=== PATIENT | male | born 1935 | race Hispanic/Latino ===

== ENCOUNTER 2020-08-05 19:29 | Observation (INO) | payer MEDICARE ==
--- NOTE | 2020-08-05 20:35 | Emergency Department Report ---
- General Chief complaint: Weakness Stated complaint: WEAKNESS PUI?: No Time Seen by Provider: 08/05/20 20:19 Source: EMS Mode of arrival: Stretcher Limitations: Altered Mental Status - History of Present Illness Initial comments: Patient is an 84-year-old male that presents emergency room with complaints of right-sided weakness, altered mental status. Patient brought in by EMS. Patient's last known well time was at 5 PM. Per EMS report. Patient was sitting on the couch and began to lean to the right and had right-sided weakness and became confused and lost control of his bladder. Patient since then has right-sided weakness has resolved. Patient is still altered. Patient at this time is alert and oriented x1. MD Complaint: focal weakness -: Sudden Severity: severe - Related Data Allergies Allergy/AdvReac Type Severity Reaction Status Date / Time No Known Allergies Allergy Unverified 08/05/20 21:02 ED Review of Systems ROS: Stated complaint: WEAKNESS Other details as noted in HPI Comment: Unobtainable due to pts medical conditions ED Past Medical Hx - Past Medical History Previous Medical History?: Yes Hx Hypertension: Yes Hx Seizures: Yes Hx Dementia: Yes Additional medical history: alzheimers. Brain tumor removed in 1989 - Surgical History Past Surgical History?: Yes Additional Surgical History: INTERPRETER shunt placement - Social History Smoking Status: Unknown if ever smoked ED Physical Exam - General Limitations: Altered Mental Status General appearance: alert, in no apparent distress - Head Head exam: Present: atraumatic, normocephalic - Eye Eye exam: Present: normal appearance, PERRL Pupils: Present: normal accommodation - ENT ENT exam: Present: mucous membranes dry - Neck Neck exam: Present: normal inspection - Respiratory Respiratory exam: Present: normal lung sounds bilaterally. Absent: respiratory distress, wheezes - Cardiovascular Cardiovascular Exam: Present: regular rate, normal rhythm. Absent: systolic murmur, diastolic murmur, rubs, gallop - GI/Abdominal GI/Abdominal exam: Present: soft, normal bowel sounds. Absent: distended, tenderness, guarding - Rectal Rectal exam: Present: deferred - Extremities Exam Extremities exam: Present: normal inspection - Back Exam Back exam: Present: normal inspection - Neurological Exam Neurological exam: Present: alert, altered - Psychiatric Psychiatric exam: Present: normal affect, normal mood - Skin Skin exam: Present: warm, dry, intact, normal color. Absent: rash - Assessment Assessment Interval: Baseline - Level of Consciousness 1a. Level of Consciousness: alert/keenly responsive - LOC Questions 1b. LOC Questions: answers 1 question correctly - LOC Command 1c. LOC Commands: performs tasks correctly - Best Gaze 2. Best Gaze: normal - Visual 3. Visual: no visual loss - Facial Palsy 4. Facial Palsy: normal symmetrical movement - Motor Arm 5a. Motor Arm Left: no drift 5b. Motor Arm Right: no drift - Motor Leg 6a. Motor Leg Left: no drift 6b. Motor Leg Right: no drift - Limb Ataxia 7. Limb Ataxia: absent - Sensory 8. Sensory: normal - Best Language 9. Best Language: no aphasia - Dysarthria 10. Dysarthria: normal - Extinction and Inattention 11. Extinction/Inattention: no abnormality - Scoring Total Score: 1 Stroke Severity: Minor Stroke ED Course Vital Signs 08/05/20 08/05/20 08/05/20 19:47 19:48 20:01 Temperature 98.9 F Pulse Rate 73 70 65 Respiratory 25 H 25 H 27 H Rate Blood Pressure 170/77 Blood Pressure 165/80 [left arm] O2 Sat by Pulse 95 93 91 Oximetry 08/05/20 08/05/20 20:15 20:31 Temperature Pulse Rate 68 Respiratory 17 Rate Blood Pressure 170/77 170/77 Blood Pressure [left arm] O2 Sat by Pulse 97 94 Oximetry - Reevaluation(s) Reevaluation #1: Initial evaluation done. Code stroke initiated due to symptoms and presenting illness. Patient will be taken medially CT. Neurology has been consulted. 08/05/20 20:34 Reevaluation #2: I discussed all results with patient. I discussed plan of care with patient. Patient agrees with plan of care and admission. Patient to be admitted to the hospitalist service. 08/05/20 21:37 - Consultations Consultation #1: I discussed case with neurology. Neurology believes this is a seizure. Neurology recommends admission, MRI, seizure work-up and TIA work-up. 08/05/20 21:07 Consultation #2: Hospitalist consulted for admission. Hospitalist to admit patient. 08/05/20 21:37 ED Medical Decision Making - Lab Data Result diagrams: 08/05/20 20:59 08/05/20 20:59 - EKG Data -: EKG Interpreted by Me EKG shows normal: sinus rhythm, ST-T waves Rate: normal - EKG Data Interpretation: LVH, other ([place] deviation, left bundle branch block, second- degree AV block Mobitz 1) - Radiology Data Radiology results: report reviewed, image reviewed interpreted by me: Chest x-ray: No pneumonia, no pneumothorax, no foreign body, no osseous fi ndings, no acute findings NONENHANCED CT SCAN OF THE HEAD: INDICATION / CLINICAL INFORMATION: 84 years Male; Stroke symptoms. TECHNIQUE: Routine CT head without contrast. All CT scans at this location are performed using CT dose reduction for ALARA by means of automated exposure control. COMPARISON: None. FINDINGS: BRAIN / INTRACRANIAL CONTENTS: No intracerebral hemorrhage or stroke mimics No CT findings to suggest acute/subacute territorial infarction; basal ganglia, insular cortex and [place]-white interfaces normal seventh; no signs of vasculopathy such increased middle cerebral artery attenuation are increased attenuation of the middle cerebral artery branches in the sylvian fissure Extraventricular drainage shunt entering via right frontal dangelo hole; tip of this shunt against septum pellucidum; brain volume loss along the track of the shunt Lateral ventricles and third ventricle dilated; temporal horns are markedly dilated; no crowding of the cortical sulci in the high convexity or prominent sylvian fissure or decreased angulation of the lateral ventricles at he level of the posterior commissure (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 No chronic infarct or focal atrophy. Mild to moderate cortical involution; markedly dilated temporal horns suggest significant volume loss in the medial temporal lobes periventricular low attenuation areas due to chronic small vessel disease CRANIOCERVICAL JUNCTION: No significant abnormality. ORBITS: No significant abnormality of visualized orbits. SINUSES / MASTOIDS: No significant abnormality of the visualized paranasal sinuses or mastoid air cells. ADDITIONAL FINDINGS: None. IMPRESSION: No acute focal parenchymal lesion in the brain XR chest 1V ap INDICATION / CLINICAL INFORMATION: ams. COMPARISON: None available. FINDINGS: SUPPORT DEVICES: None. HEART /PULMONARY VASCULATURE: No significant abnormality. LUNGS / PLEURA: No significant pulmonary or pleural abnormality. No pneumothorax. ADDITIONAL FINDINGS: No significant additional findings. IMPRESSION: 1. No acute findings. - Medical Decision Making Patient is an 84-year-old male that presents emergency room for weakness and loss of urine and altered mental status. Patient is believed to be at his baseline however the patient at 5 PM today had an episode of right-sided weakne ss and loss of bladder control. Patient on exam was alert and oriented x1. Patient had labs done which were essentially unremarkable except for elevated WBC and a UTI. After initial evaluation, a code stroke was initiated. Neurology saw the patient. Neurology recommendations were received. CT scan of the head was negative for acute findings. Chest x-ray was negative for acute findings. Patient's EKG shows a sinus rhythm with a second-degree AV block, Mobitz 1 and a left bundle branch block. Patient given IV antibiotics and fluids while in ER. Patient admitted to the hospital service for further evaluation treatment. - Differential Diagnosis CVA, TIA, AMS, UTI, SZ, dementia, weakness Critical Care Time: Yes Critical care time in (mins) excluding proc time.: 35 Critical care attestation.: If time is entered above; I have spent that time in minutes in the direct care of this critically ill patient, excluding procedure time. Critical Care Time: 35 minutes ED Disposition Clinical Impression: TIA (transient ischemic attack), Weakness, Abnormal EKG Altered mental state Qualifiers: Altered mental status type: unspecified Qualified Code(s): R41.82 - Altered mental status, unspecified UTI (urinary tract infection) Qualifiers: Urinary tract infection type: acute cystitis Hematuria presence: with hematuria Qualified Code(s): N30.01 - Acute cystitis with hematuria Disposition: DC09 OP ADMIT IP TO THIS HOSP Is pt being admited?: Yes Does the pt Need Aspirin: No Condition: Critical Time of Disposition: 21:39
--- NOTE | 2020-08-05 20:44 | Emergency Department Report ---
ED Neuro Deficit HPI - General Chief Complaint: Weakness Stated Complaint: WEAKNESS Time Seen by Provider: 08/05/20 20:19 Source: EMS Mode of arrival: Stretcher Limitations: Altered Mental Status - History of Present Illness Initial Comments: [facility] Date of Service: 08/05/2020 20:33:16 Impression: Transient Ischemic Attack r/o TIA r/o Seizure Comments/Sign-Out: Patient is a 84 years old man who presents to the ED after having sudden onset right side weakness, urinary incontinence. Symptoms are improved now. On exam, patient is disoriented but he has history of dementia and this may be baseline. There are no other motor or speech deficits on exam. NIHSS is 2. Non contrast CTH showed no acute abnormalities. DDx includes TIA vs focal seizure. Recommend admission for further work-up. Metrics: Last Known Well: 08/05/2020 17:00:00 [facility] Notification Time: 08/05/2020 20:32:51 Arrival Time: 08/05/2020 19:29:00 Stamp Time: 08/05/2020 20:33:16 Time First Login Attempt: 08/05/2020 20:35:51 Video Start Time: 08/05/2020 20:35:51 Symptoms: Generalized weakness NIHSS Start Assessment Time: 08/05/2020 20:37:09 Patient is not a candidate for Alteplase/Activase. Patient was not deemed candidate for Alteplase/Activase thrombolytics because of Resolved symptoms (no residual disabling symptoms). Video End Time: 08/05/2020 20:57:27 CT head showed no acute hemorrhage or acute core infarct. Clinical Presentation is not Suggestive of Large Vessel Occlusive Disease ED Physician notified of diagnostic impression and management plan on 08/05/2020 20:56:16 Our recommendations are outlined below. Recommendations: Activate Stroke Protocol Admission/Order Set Stroke/Telemetry Floor Neuro Checks Bedside Swallow Eval DVT Prophylaxis IV Fluids, Normal Saline Head of Bed 30 Degrees Euglycemia and Avoid Hyperthermia (PRN Acetaminophen) Routine Consultation with Inhouse Neurology for Follow up Care Sign Out: Discussed with Emergency Department Provider History of Present Illness: Patient is a 84 year old Male. Patient was brought by EMS for symptoms of Generalized weakness Patient is a 84 years old man who presents to the ED via EMS after he had sudden onset right side weakness and urinary incontinence while at a family dinner. LKW at 5:00 PM. EMS was called and patient was brought to the ED for evaluation. By the time patient arrived to the ED, he was still confused. No other history is available at the time of my evaluation. Patient has history of dementia. Last seen normal was within 4.5 hours. Examination: BP(165/80), Pulse(70), Blood Glucose(157) 1A: Level of Consciousness - Alert; keenly responsive + 0 1B: Ask Month and Age - Could Not Answer Either Question Correctly + 2 1C: Blink Eyes & Squeeze Hands - Performs Both Tasks + 0 2: Test Horizontal Extraocular Movements - Normal + 0 3: Test Visual Gerard - No Visual Loss + 0 4: Test Facial Palsy (Use Grimace if Obtunded) - Normal symmetry + 0 5A: Test Left Arm Motor Drift - No Drift for 10 Seconds + 0 5B: Test Right Arm Motor Drift - No Drift for 10 Seconds + 0 6A: Test Left Leg Motor Drift - No Drift for 5 Seconds + 0 6B: Test Right Leg Motor Drift - No Drift for 5 Seconds + 0 7: Test Limb Ataxia (FNF/Heel-Gallardo) - No Ataxia + 0 8: Test Sensation - Normal; No sensory loss + 0 9: Test Language/Aphasia - Normal; No aphasia + 0 10: Test Dysarthria - Normal + 0 11: Test Extinction/Inattention - No abnormality + 0 NIHSS Score: 2 Patient/Family was informed the Neurology Consult would happen via TeleHealth consult by way of interactive audio and video telecommunications and consented to receiving care in this manner. Due to the immediate potential for life-threatening deterioration due to underlying acute neurologic illness, I spent 35 minutes providing critical care. This time includes time for face to face visit via telemedicine, review of medical records, imaging studies and discussion of findings with providers, the patient and/or family. Dr Aury Macario [facility] Case [id number] Severity: severe ED Review of Systems ROS: Stated complaint: WEAKNESS Other details as noted in HPI ED Past Medical Hx - Past Medical History Additional medical history: alzheimers - Social History Smoking Status: Unknown if ever smoked ED Neuro Physical Exam - General Limitations: Altered Mental Status Suspected Stroke: No ED Course Vital Signs 08/05/20 19:48 Temperature 98.9 F Pulse Rate 70 Respiratory 25 H Rate Blood Pressure 165/80 [left arm] O2 Sat by Pulse 93 Oximetry - Lab Data Lab Results 08/05/20 08/05/20 08/05/20 Range/Units 20:47 Unknown Unknown POC Glucose 157 H (70-105) mg/dL Urine Color [place] (Yellow) Urine Turbidity Cloudy (Clear) Urine pH 5.0 (5.0-7.0) Ur Specific [place] 1.015 (1.003-1.030) Urine Protein 100 mg/dl (Negative) mg/dL Urine Glucose (UA) Neg (Negative) mg/dL Urine Ketones Neg (Negative) mg/dL Urine Blood Mod (Negative) Urine Nitrite Pos (Negative) Urine Bilirubin Neg (Negative) Urine Urobilinogen < 2.0 (<2.0) mg/dL Ur Leukocyte Esterase Lg (Negative) Urine WBC (Auto) > 182.0 H (0.0-6.0) /HPF Urine RBC (Auto) 30.0 (0.0-6.0) /HPF Urine Bacteria (Auto) 2+ (Negative) /HPF Urine WBC Clumps 3+ /HPF Urine Mucus 2+ /HPF Urine Yeast (Budding) 3+ /HPF Urine Opiates Screen Negative Urine Methadone Screen Negative Ur Barbiturates Screen Negative Ur Phencyclidine Scrn Negative Ur Amphetamines Screen Negative U Benzodiazepines Scrn Negative Urine Cocaine Screen Negative U Marijuana (THC) Screen Negative Drugs of Abuse Note Disclamer Critical care attestation.: If time is entered above; I have spent that time in minutes in the direct care of this critically ill patient, excluding procedure time. ED Disposition Clinical Impression: TIA (transient ischemic attack) Disposition: OP ADMIT IP TO THIS HOSP Is pt being admited?: Yes Condition: Stable
[2020-08-05 20:49] LABS: Amphetamine Screen,Urine Negative; Bacteria,Urine 2+ /HPF (Negative); Benzodiazepines Screen,Urine Negative; Bilirubin,Urine NEG (Negative); Blood,Urine MOD (Negative); Cannabinoid Screen,Urine Negative; Cocaine Screen,Urine Negative; Color,Urine Amber (Yellow); Methadone Screen,Urine Negative; Mucus,Urine 2+ /HPF; Opiate Screen,Urine Negative; Urobilinogen,Urine < 2.0 mg/dL (<2.0); WBC,Urine > 182.0 /HPF (0.0-6.0)
[2020-08-05 21:12] LABS: Basophils % (Auto) 0.2 % (0.0-1.8); Hemoglobin 14.4 gm/dl (11.8-15.2); Lymphocytes # (Auto) 1.1 K/mm3 (1.2-5.4); Lymphocytes % (Auto) 8.7 % (13.4-35.0); Mean Corpuscular HGB Conc 34 % (32-34); Mean Corpuscular Volume 90 fl (84-94); Monocytes # (Auto) 0.8 K/mm3 (0.0-0.8); Platelet Count 261 K/mm3 (140-440); Red Blood Count 4.66 M/mm3 (3.65-5.03)
--- NOTE | 2020-08-05 21:18 | XRay Report ---
XR chest 1V ap INDICATION / CLINICAL INFORMATION: ams. COMPARISON: None available. FINDINGS: SUPPORT DEVICES: None. HEART /PULMONARY VASCULATURE: No significant abnormality. LUNGS / PLEURA: No significant pulmonary or pleural abnormality. No pneumothorax. ADDITIONAL FINDINGS: No significant additional findings. IMPRESSION: 1. No acute findings. Signer Name: Manuelito Reed MD Signed: 08/05/2020 9:14 PM Workstation Name: [id number]
--- NOTE | 2020-08-05 21:18 | Cat Scan Report ---
NONENHANCED CT SCAN OF THE HEAD: INDICATION / CLINICAL INFORMATION: 84 years Male; Stroke symptoms. TECHNIQUE: Routine CT head without contrast. All CT scans at this location are performed using CT dos e reduction for ALARA by means of automated exposure control. COMPARISON: None. FINDINGS: BRAIN / INTRACRANIAL CONTENTS: No intracerebral hemorrhage or stroke mimics No CT findings to suggest acute/subacute territorial infarction; basal ganglia, insular cortex and gr ay-white interfaces normal seventh; no signs of vasculopathy such increased middle cerebral artery at tenuation are increased attenuation of the middle cerebral artery branches in the sylvian fissure Extraventricular drainage shunt entering via right frontal dangelo hole; tip of this shunt against septu m pellucidum; brain volume loss along the track of the shunt Lateral ventricles and third ventricle dilated; temporal horns are markedly dilated; no crowding of t he cortical sulci in the high convexity or prominent sylvian fissure or decreased angulation of the l ateral ventricles at he level of the posterior commissure (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 No chronic inf arct or focal atrophy. Mild to moderate cortical involution; markedly dilated temporal horns suggest significant volume loss in the medial temporal lobes periventricular low attenuation areas due to chr onic small vessel disease CRANIOCERVICAL JUNCTION: No significant abnormality. ORBITS: No significant abnormality of visualized orbits. SINUSES / MASTOIDS: No significant abnormality of the visualized paranasal sinuses or mastoid air ashley ls. ADDITIONAL FINDINGS: None. IMPRESSION: No acute focal parenchymal lesion in the brain COMMUNICATION: Time of Communication (ARTISTS' MODEL/CDT): 8:11 PM Licensed Practitioner Receiving Report: ER physician Signer Name: Ivan Wolf MD Signed: 08/05/2020 9:13 PM Workstation Name: [id number]
[2020-08-05 21:22] LABS: INR 1.06 (0.87-1.13)
[2020-08-05 21:23] LABS: Partial Thromboplastin Time 25.8 Sec. (24.2-36.6)
[2020-08-05] MEDS ORDERED: cefTRIAXone/NS 2 GM/100 ML 2 GM/100 ML BAG IV ONE (21:24)
[2020-08-05 21:29] LABS: Calcium 10.1 mg/dL (8.4-10.2)
[2020-08-05] MEDS ORDERED: SODIUM CHLORIDE 0.9% 1000 ML 1,000 ML IV ONE (21:34)
[2020-08-05 21:44] LABS: Creatine Kinase MB 1.8 ng/mL (0.0-4.0)
--- NOTE | 2020-08-05 23:20 | History and Physical Report ---
History of Present Illness Date of examination: 08/05/20 Date of admission: 08/05/20 21:40 Chief complaint: Right sided weakness History of present illness: 84-year-old male with known history of hypertension, brain tumor removal in 1989 and mild dementia was brought in by EMS today with a complaint of right-sided weakness and changes in mental status. Patient was said to be well until about 5 PM this evening and was later found to be leaning to the right while sitting on the couch appearing confused with loss of bladder control. Right-sided weakness has since resolved since arrival in the emergency room. However he was still mildly confused. Patient unable to give any good history and only alert and oriented x1. Most of the history was gotten from the ER staff. He was evaluated by the tele-neurologist and recommendation is to have patient worked up for TIA and possibly seizure disorder. Work-up in the emergency room reveals a UTI. CT scan of the head and chest x-ray were unremarkable. Patient being admitted for TIA versus seizure disorder and a UTI. Past History Past Medical History: hypertension, seizures, other (Dementia) Past Surgical History: Other (SIX SIGMA PROJECT MANAGER shunt placement,Brain tumor removal in 1989) Social history: no significant social history Family history: no significant family history Medications and Allergies Allergies Allergy/AdvReac Type Severity Reaction Status Date / Time No Known Allergies Allergy Unverified 08/05/20 21:02 Home Medications Medication Instructions Recorded Confirmed Last Taken Type Colesevelam [Welchol] 1,875 mg PO BID 08/05/20 08/05/20 Unknown History Melatonin [Melatonin 3MG TAB] 3 mg PO QHS PRN 08/05/20 08/05/20 Unknown History Memantine [Namenda] 5 mg PO BID 08/05/20 08/05/20 Unknown History Omeprazole 40 mg PO QDAY 08/05/20 08/05/20 Unknown History Sertraline [Zoloft] 25 mg PO QDAY 08/05/20 08/05/20 Unknown History donepeziL [Aricept] 10 mg PO QDAY 08/05/20 08/05/20 Unknown History Review of Systems ROS unobtainable: due to mental status Exam - Constitutional Vitals: Temp Pulse Resp BP Pulse Ox 98.9 F 86 15 170/77 94 08/05/20 19:48 08/05/20 22:30 08/05/20 22:30 08/05/20 22:30 08/05/20 22:30 General appearance: Present: no acute distress, well-nourished - EENT Eyes: Present: PERRL, EOM intact. Absent: scleral icterus ENT: hearing intact, clear oral mucosa, dentition normal - Neck Neck: Present: supple, normal ROM - Respiratory Respiratory effort: normal Respiratory: bilateral: CTA - Cardiovascular Rhythm: regular Heart Sounds: Present: S1 & S2. Absent: gallop, systolic murmur, diastolic murmur, rub - Extremities Extremities: no ischemia, pulses intact, pulses symmetrical, No edema, Full ROM Peripheral Pulses: within normal limits - Abdominal General gastrointestinal: Present: soft, non-tender, non-distended, normal bowel sounds. Absent: mass - Integumentary Integumentary: Present: clear, warm, dry. Absent: rash - Musculoskeletal Musculoskeletal: strength equal bilaterally - Psychiatric Psychiatric: cooperative - Neurologic Neurologic: CNII-XII intact, no focal deficits, moves all extremities HEART Score - HEART Score Troponin: Troponin T < 0.010 ng/mL (0.00-0.029) 08/05/20 20:59 Results - Labs CBC & Chem 7: 08/05/20 20:59 08/05/20 20:59 Labs: Abnormal lab results 08/05/20 08/05/20 08/05/20 Range/Units 20:47 20:59 20:59 WBC 12.9 H (4.5-11.0) K/mm3 RDW 13.0 L (13.2-15.2) % Lymph % (Auto) 8.7 L (13.4-35.0) % Lymph # (Auto) 1.1 L (1.2-5.4) K/mm3 Seg Neutrophils % 85.1 H (40.0-70.0) % Seg Neutrophils # 11.0 H (1.8-7.7) K/mm3 Thrombin Time 15.0 L (15.1-19.6) Sec. BUN (9-20) mg/dL Glucose (75-100) mg/dL POC Glucose 157 H (70-105) mg/dL Urine WBC (Auto) (0.0-6.0) /HPF 08/05/20 08/05/20 Range/Units 20:59 Unknown WBC (4.5-11.0) K/mm3 RDW (13.2-15.2) % Lymph % (Auto) (13.4-35.0) % Lymph # (Auto) (1.2-5.4) K/mm3 Seg Neutrophils % (40.0-70.0) % Seg Neutrophils # (1.8-7.7) K/mm3 Thrombin Time (15.1-19.6) Sec. BUN 21 H (9-20) mg/dL Glucose 140 H (75-100) mg/dL POC Glucose (70-105) mg/dL Urine WBC (Auto) > 182.0 H (0.0-6.0) /HPF Assessment and Plan - Patient Problems (1) Altered mental state Current Visit: Yes Status: Acute Qualifiers: Altered mental status type: unspecified Qualified Code(s): R41.82 - Altered mental status, unspecified (2) UTI (urinary tract infection) Current Visit: Yes Status: Acute Qualifiers: Urinary tract infection type: acute cystitis Hematuria presence: with hematuria Qualified Code(s): N30.01 - Acute cystitis with hematuria (3) TIA (transient ischemic attack) Current Visit: Yes Status: Acute (4) Weakness Current Visit: Yes Status: Acute (5) DVT prophylaxis Current Visit: Yes Status: Acute (6) Full code status Current Visit: Yes Status: Acute
[2020-08-06] MEDS ORDERED: ACETAMINOPHEN 325 MG TAB PO PRN (05:03)
[2020-08-06] MEDS: SERTRALINE 25 MG TAB PO SCH (09:22)
[2020-08-06] MEDS: ASPIRIN 325 MG TAB PO SCH (09:23)
[2020-08-06] MEDS: cefTRIAXone/NS 1 GM/50 ML 1 GM/50 ML BAG IV SCH (09:23)
[2020-08-06] MEDS: DONEPEZIL 10 MG TAB PO SCH (09:23)
[2020-08-06] MEDS: PANTOPRAZOLE 40 MG TAB PO SCH (09:23)
--- NOTE | 2020-08-06 09:52 | Progress Note ---
Assessment and Plan Assessment and plan: (1) Altered mental state Current Visit: Yes Status: Acute Qualifiers: Altered mental status type: unspecified Qualified Code(s): R41.82 - Altered mental status, unspecified Improved (2) UTI (urinary tract infection) Current Visit: Yes Status: Acute Qualifiers: Urinary tract infection type: acute cystitis Hematuria presence: with hematuria Qualified Code(s): N30.01 - Acute cystitis with hematuria Patient is on IV ceftriaxone We will follow urine culture (3) TIA (transient ischemic attack) vs seizure disorder Current Visit: Yes Status: Acute -TIA/CVA work-up in progress -Telemetry neurology consult (4) Weakness Current Visit: Yes Status: Acute PT OT consulted (5) DVT prophylaxis Current Visit: Yes Status: Acute (6) Full code status Current Visit: Yes Status: Acute History Interval history: Patient was seen and evaluated this morning Patient is demented but cooperative Hospitalist Physical - Physical exam Narrative exam: Not in cardiopulmonary distress. The patient appeared well nourished and normally developed. Vital signs as documented. Head exam is unremarkable. No scleral icterus . Neck is without jugular venous distension, thyromegaly, or carotid bruits. Lungs are clear to auscultation. Cardiac exam reveals regular rate and Rhythm. Abdominal exam reveals normal bowel sounds, nontender, no organomegaly. Extremities are nonedematous and both femoral and pedal pulses are normal. GLASS DEPOSITION TENDER: Alert and oriented to self. No focal weakness. - Constitutional Vitals: Temp Pulse Resp BP Pulse Ox 97.5 F L 79 18 156/79 91 08/06/20 08:23 08/06/20 08:23 08/06/20 08:23 08/06/20 08:23 08/06/20 08:23 General appearance: Present: no acute distress, well-nourished HEART Score - HEART Score Troponin: Troponin T < 0.010 ng/mL (0.00-0.029) 08/05/20 20:59 Results - Labs CBC & Chem 7: 08/05/20 20:59 08/05/20 20:59 Labs: Laboratory Last Values WBC 12.9 K/mm3 (4.5-11.0) H 08/05/20 20:59 RBC 4.66 M/mm3 (3.65-5.03) 08/05/20 20:59 Hgb 14.4 gm/dl (11.8-15.2) 08/05/20 20:59 Hct 42.0 % (35.5-45.6) 08/05/20 20: MCV 90 fl (84-94) 08/05/20 20:59 MCH 31 pg (28-32) 08/05/20 20:59 MCHC 34 % (32-34) 08/05/20 20: RDW 13.0 % (13.2-15.2) L 08/05/20 20:59 Plt Count 261 K/mm3 (140-440) 08/05/20 20: Lymph % (Auto) 8.7 % (13.4-35.0) L 08/05/20 20: [place] % (Auto) 6.0 % (0.0-7.3) 08/05/20 20: Eos % (Auto) 0.0 % (0.0-4.3) 08/05/20 20: Baso % (Auto) 0.2 % (0.0-1.8) 08/05/20 20: Lymph # (Auto) 1.1 K/mm3 (1.2-5.4) L 08/05/20 20:59 [place] # (Auto) 0.8 K/mm3 (0.0-0.8) 08/05/20 20: Eos # (Auto) 0.0 K/mm3 (0.0-0.4) 08/05/20 20: Baso # (Auto) 0.0 K/mm3 (0.0-0.1) 08/05/20 20: Seg Neutrophils % 85.1 % (40.0-70.0) H 08/05/20 20: Seg Neutrophils # 11.0 K/mm3 (1.8-7.7) H 08/05/20 20:59 PT 13.6 Sec. (12.2-14.9) 08/05/20 20: INR 1.06 (0.87-1.13) 08/05/20 20:59 APTT 25.8 Sec. (24.2-36.6) 08/05/20 20: Thrombin Time 15.0 Sec. (15.1-19.6) L 08/05/20 20:59 Sodium 141 mmol/L (137-145) 08/05/20 20:59 Potassium 3.9 mmol/L (3.6-5.0) 08/05/20 20:59 Chloride 103.5 mmol/L (98-107) 08/05/20 20:59 Carbon Dioxide 27 mmol/L (22-30) 08/05/20 20:59 Anion Gap 14 mmol/L 08/05/20 20:59 BUN 21 mg/dL (9-20) H 08/05/20 20:59 Creatinine 1.2 mg/dL (0.8-1.3) 08/05/20 20:59 Estimated GFR 58 ml/min 08/05/20 20:59 BUN/Creatinine Ratio 18 % 08/05/20 20:59 Glucose 140 mg/dL (75-100) H 08/05/20 20:59 POC Glucose 157 mg/dL (70-105) H 08/05/20 20:47 Calcium 10.1 mg/dL (8.4-10.2) 08/05/20 20:59 Total Bilirubin 0.90 mg/dL (0.1-1.2) 08/05/20 20:59 AST 15 units/L (5-40) 08/05/20 20:59 ALT 14 units/L (7-56) 08/05/20 20:59 Alkaline Phosphatase 73 units/L (35-129) 08/05/20 20:59 Total Creatine Kinase 74 units/L (55-170) 08/05/20 20:59 CK-MB (CK-2) 1.8 ng/mL (0.0-4.0) 08/05/20 20: CK-MB (CK-2) Rel Index 2.4 (0-4) 08/05/20 20:59 Troponin T < 0.010 ng/mL (0.00-0.029) 08/05/20 20:59 Total Protein 7.9 g/dL (6.3-8.2) 08/05/20 20:59 Albumin 4.0 g/dL (3.9-5) 08/05/20 20:59 Albumin/Globulin Ratio 1.0 % 08/05/20 20:59 Urine Color [place] (Yellow) 08/05/20 Unknown Urine Turbidity Cloudy (Clear) 08/05/20 Unknown Urine pH 5.0 (5.0-7.0) 08/05/20 Unknown Ur Specific [place] 1.015 (1.003-1.030) 08/05/20 Unknown Urine Protein 100 mg/dl mg/dL (Negative) 08/05/20 Unknown Urine Glucose (UA) Neg mg/dL (Negative) 08/05/20 Unknown Urine Ketones Neg mg/dL (Negative) 08/05/20 Unknown Urine Blood Mod (Negative) 08/05/20 Unknown Urine Nitrite Pos (Negative) 08/05/20 Unknown Urine Bilirubin Neg (Negative) 08/05/20 Unknown Urine Urobilinogen < 2.0 mg/dL (<2.0) 08/05/20 Unknown Ur Leukocyte Esterase Lg (Negative) 08/05/20 Unknown Urine WBC (Auto) > 182.0 /HPF (0.0-6.0) H 08/05/20 Unknown Urine RBC (Auto) 30.0 /HPF (0.0-6.0) 08/05/20 Unknown Urine Bacteria (Auto) 2+ /HPF (Negative) 08/05/20 Unknown Urine WBC Clumps 3+ /HPF 08/05/20 Unknown Urine Mucus 2+ /HPF 08/05/20 Unknown Urine Yeast (Budding) 3+ /HPF 08/05/20 Unknown Urine Opiates Screen Negative 08/05/20 Unknown Urine Methadone Screen Negative 08/05/20 Unknown Ur Barbiturates Screen Negative 08/05/20 Unknown Ur Phencyclidine Scrn Negative 08/05/20 Unknown Ur Amphetamines Screen Negative 08/05/20 Unknown U Benzodiazepines Scrn Negative 08/05/20 Unknown Urine Cocaine Screen Negative 08/05/20 Unknown U Marijuana (THC) Screen Negative 08/05/20 Unknown Drugs of Abuse Note Disclamer 08/05/20 Unknown Plasma/Serum Alcohol < 0.01 % (0-0.07) 08/05/20 20:59 Ryan/IV: Voiding Method Condom Catheter IV Catheter Type [left hand] Peripheral IV Active Medications - Current Medications Current Medications: Generic Name Dose Route Start Last Admin Trade Name Freq PRN Reason Stop Dose Admin Acetaminophen 650 mg 08/06/20 05:03 Tylenol PO Q4H PRN Pain, Mild (1-3) Aspirin 325 mg 08/06/20 10:00 08/06/20 09:23 Aspirin PO 325 mg QDAY MEIR Administration Atorvastatin Calcium 40 mg 08/06/20 22:00 Lipitor PO QHS MEIR Colesevelam HCl 1,875 mg 08/06/20 10:00 Welchol PO BID MEIR Donepezil HCl 10 mg 08/06/20 10:00 08/06/20 09:23 Aricept PO 10 mg QDAY MEIR Administration Ceftriaxone Sodium 1 gm in 50 mls @ 100 mls/hr 08/06/20 10:00 08/06/20 09:23 Rocephin/Ns 1 Gm/50 Ml IV 100 mls/hr Q24HR MEIR Administration Protocol Melatonin 5 mg 08/06/20 05:05 Melatonin PO QHS PRN Sleep Memantine 5 mg 08/06/20 10:00 Memantine PO BID MEIR Pantoprazole Sodium 40 mg 08/06/20 10:00 08/06/20 09:23 Protonix PO 40 mg QDAY MEIR Administration Sertraline HCl 25 mg 08/06/20 10:00 08/06/20 09:22 Zoloft PO 25 mg QDAY MEIR Administration Sodium Chloride 10 ml 08/06/20 05:03 Sodium Chloride Flush Syringe 10 Ml IV PRN PRN LINE FLUSH
[2020-08-06] MEDS: MEMANTINE 5 MG TAB PO SCH ×2 (10:09→21:30)
[2020-08-06] MEDS: COLESEVELAM 625 MG TAB PO SCH ×2 (10:12→21:30)
[2020-08-06 12:18] LABS: Bacteria,Urine 1+ /HPF (Negative); Bilirubin,Urine NEG (Negative); Blood,Urine MOD (Negative); Color,Urine Yellow (Yellow); Mucus,Urine FEW /HPF; Urobilinogen,Urine < 2.0 mg/dL (<2.0)
[2020-08-06 12:21] LABS: WBC,Urine > 182.0 /HPF (0.0-6.0)
[2020-08-07 04:52] LABS: Basophils % (Auto) 0.2 % (0.0-1.8); Eosinophils % (Auto) 0.1 % (0.0-4.3); Hematocrit 36.7 % (35.5-45.6); Hemoglobin 12.8 gm/dl (11.8-15.2); Lymphocytes # (Auto) 1.3 K/mm3 (1.2-5.4); Lymphocytes % (Auto) 13.7 % (13.4-35.0); Mean Corpuscular HGB Conc 35 % (32-34); Mean Corpuscular Volume 90 fl (84-94); Monocytes # (Auto) 0.7 K/mm3 (0.0-0.8); Monocytes % (Auto) 7.4 % (0.0-7.3); Platelet Count 186 K/mm3 (140-440); Red Blood Count 4.07 M/mm3 (3.65-5.03); Red Cell Distribution Width 12.9 % (13.2-15.2)
[2020-08-07 05:12] LABS: BUN/Creatinine Ratio 19; Blood Urea Nitrogen 21 mg/dL (9-20); Calcium 8.7 mg/dL (8.4-10.2); Chol/HDL Ratio 4.15 %; HDL Cholesterol 32 mg/dL (40-59); Hemolysis Index 3; LDL Cholesterol,Direct 87 mg/dL (50-130)
[2020-08-07] MEDS: COLESEVELAM 625 MG TAB PO SCH ×2 (09:22→21:58)
[2020-08-07] MEDS: DONEPEZIL 10 MG TAB PO SCH (09:22)
[2020-08-07] MEDS: MEMANTINE 5 MG TAB PO SCH ×2 (09:22→21:57)
[2020-08-07] MEDS: ASPIRIN 325 MG TAB PO SCH (09:22)
[2020-08-07] MEDS: PANTOPRAZOLE 40 MG TAB PO SCH (09:22)
[2020-08-07] MEDS: SERTRALINE 25 MG TAB PO SCH (09:22)
[2020-08-07] MEDS: cefTRIAXone/NS 1 GM/50 ML 1 GM/50 ML BAG IV SCH (09:24)
--- NOTE | 2020-08-07 12:27 | Progress Note ---
Assessment and Plan Assessment and plan: (1) Altered mental state Current Visit: Yes Status: Acute Qualifiers: Altered mental status type: unspecified Qualified Code(s): R41.82 - Altered mental status, unspecified Improved (2) UTI (urinary tract infection) Current Visit: Yes Status: Acute Qualifiers: Urinary tract infection type: acute cystitis Hematuria presence: with hematuria Qualified Code(s): N30.01 - Acute cystitis with hematuria Patient is on IV ceftriaxone We will follow urine culture (3) TIA (transient ischemic attack) vs seizure disorder Current Visit: Yes Status: Acute -TIA/CVA work-up in progress -Telemetry neurology consult (4) Weakness Current Visit: Yes Status: Acute PT OT consulted (5) DVT prophylaxis Current Visit: Yes Status: Acute (6) Full code status Current Visit: Yes Status: Acute 08/07/2020 -MRI and neuro consult is pending. PT evaluation appreciated. History Interval history: Patient was seen and evaluated this morning Patient is demented but cooperative Hospitalist Physical - Physical exam Narrative exam: Not in cardiopulmonary distress. The patient appeared well nourished and normally developed. Vital signs as documented. Head exam is unremarkable. No scleral icterus . Neck is without jugular venous distension, thyromegaly, or carotid bruits. Lungs are clear to auscultation. Cardiac exam reveals regular rate and Rhythm. Abdominal exam reveals normal bowel sounds, nontender, no organomegaly. Extremities are nonedematous and both femoral and pedal pulses are normal. BEEF PUSHER: Alert and oriented to self. No focal weakness. - Constitutional Vitals: Temp Pulse Resp BP Pulse Ox 99.2 F 61 20 142/65 98 08/07/20 07:33 08/07/20 07:33 08/07/20 10:00 08/07/20 07:33 08/07/20 10:00 General appearance: Present: no acute distress, well-nourished HEART Score - HEART Score Troponin: Troponin T < 0.010 ng/mL (0.00-0.029) 08/05/20 20:59 Results - Labs CBC & Chem 7: 08/07/20 04:24 08/07/20 04:24 Labs: Laboratory Last Values WBC 9.3 K/mm3 (4.5-11.0) 08/07/20 04:24 RBC 4.07 M/mm3 (3.65-5.03) 08/07/20 04:24 Hgb 12.8 gm/dl (11.8-15.2) 08/07/20 04:24 Hct 36.7 % (35.5-45.6) 08/07/20 04:24 MCV 90 fl (84-94) 08/07/20 04:24 MCH 31 pg (28-32) 08/07/20 04:24 MCHC 35 % (32-34) H 08/07/20 04:24 RDW 12.9 % (13.2-15.2) L 08/07/20 04:24 Plt Count 186 K/mm3 (140-440) 08/07/20 04:24 Lymph % (Auto) 13.7 % (13.4-35.0) 08/07/20 04:24 [place] % (Auto) 7.4 % (0.0-7.3) H 08/07/20 04:24 Eos % (Auto) 0.1 % (0.0-4.3) 08/07/20 04:24 Baso % (Auto) 0.2 % (0.0-1.8) 08/07/20 04:24 Lymph # (Auto) 1.3 K/mm3 (1.2-5.4) 08/07/20 04:24 [place] # (Auto) 0.7 K/mm3 (0.0-0.8) 08/07/20 04:24 Eos # (Auto) 0.0 K/mm3 (0.0-0.4) 08/07/20 04:24 Baso # (Auto) 0.0 K/mm3 (0.0-0.1) 08/07/20 04:24 Seg Neutrophils % 78.6 % (40.0-70.0) H 08/07/20 04:24 Seg Neutrophils # 7.3 K/mm3 (1.8-7.7) 08/07/20 04:24 PT 13.6 Sec. (12.2-14.9) 08/05/20 20:59 INR 1.06 (0.87-1.13) 08/05/20 20:59 APTT 25.8 Sec. (24.2-36.6) 08/05/20 20:59 Thrombin Time 15.0 Sec. (15.1-19.6) L 08/05/20 20:59 Sodium 140 mmol/L (137-145) 08/07/20 04:24 Potassium 3.7 mmol/L (3.6-5.0) 08/07/20 04:24 Chloride 104.9 mmol/L (98-107) 08/07/20 04:24 Carbon Dioxide 28 mmol/L (22-30) 08/07/20 04:24 Anion Gap 11 mmol/L 08/07/20 04:24 BUN 21 mg/dL (9-20) H 08/07/20 04:24 Creatinine 1.1 mg/dL (0.8-1.3) 08/07/20 04:24 Estimated GFR > 60 ml/min 08/07/20 04:24 BUN/Creatinine Ratio 19 % 08/07/20 04:24 Glucose 109 mg/dL (75-100) H 08/07/20 04:24 POC Glucose 157 mg/dL (70-105) H 08/05/20 20:47 Calcium 8.7 mg/dL (8.4-10.2) 08/07/20 04:24 Total Bilirubin 0.90 mg/dL (0.1-1.2) 08/05/20 20:59 AST 15 units/L (5-40) 08/05/20 20:59 ALT 14 units/L (7-56) 08/05/20 20:59 Alkaline Phosphatase 73 units/L (35-129) 08/05/20 20:59 Total Creatine Kinase 74 units/L (55-170) 08/05/20 20:59 CK-MB (CK-2) 1.8 ng/mL (0.0-4.0) 08/05/20 20:59 CK-MB (CK-2) Rel Index 2.4 (0-4) 08/05/20 20:59 Troponin T < 0.010 ng/mL (0.00-0.029) 08/05/20 20:59 Total Protein 7.9 g/dL (6.3-8.2) 08/05/20 20:59 Albumin 4.0 g/dL (3.9-5) 08/05/20 20:59 Albumin/Globulin Ratio 1.0 % 08/05/20 20:59 Triglycerides 97 mg/dL (2-149) 08/07/20 04:24 Cholesterol 133 mg/dL (50-199) 08/07/20 04:24 LDL Cholesterol Direct 87 mg/dL (50-130) 08/07/20 04:24 HDL Cholesterol 32 mg/dL (40-59) L 08/07/20 04:24 Cholesterol/HDL Ratio 4.15 % 08/07/20 04:24 Urine Color Yellow (Yellow) 08/06/20 Unknown Urine Turbidity Slightly-cloudy (Clear) 08/06/20 Unknown Urine pH 5.0 (5.0-7.0) 08/06/20 Unknown Ur Specific [place] 1.015 (1.003-1.030) 08/06/20 Unknown Urine Protein 30 mg/dl mg/dL (Negative) 08/06/20 Unknown Urine Glucose (UA) Neg mg/dL (Negative) 08/06/20 Unknown Urine Ketones Neg mg/dL (Negative) 08/06/20 Unknown Urine Blood Mod (Negative) 08/06/20 Unknown Urine Nitrite Neg (Negative) 08/06/20 Unknown Urine Bilirubin Neg (Negative) 08/06/20 Unknown Urine Urobilinogen < 2.0 mg/dL (<2.0) 08/06/20 Unknown Ur Leukocyte Esterase Lg (Negative) 08/06/20 Unknown Urine WBC (Auto) > 182.0 /HPF (0.0-6.0) H 08/06/20 Unknown Urine RBC (Auto) 7.0 /HPF (0.0-6.0) 08/06/20 Unknown Urine Bacteria (Auto) 1+ /HPF (Negative) 08/06/20 Unknown Urine WBC Clumps 3+ /HPF 08/05/20 Unknown Urine Mucus Few /HPF 08/06/20 Unknown Urine Yeast (Budding) 3+ /HPF 08/05/20 Unknown Urine Opiates Screen Negative 08/05/20 Unknown Urine Methadone Screen Negative 08/05/20 Unknown Ur Barbiturates Screen Negative 08/05/20 Unknown Ur Phencyclidine Scrn Negative 08/05/20 Unknown Ur Amphetamines Screen Negative 08/05/20 Unknown U Benzodiazepines Scrn Negative 08/05/20 Unknown Urine Cocaine Screen Negative 08/05/20 Unknown U Marijuana (THC) Screen Negative 08/05/20 Unknown Drugs of Abuse Note Disclamer 08/05/20 Unknown Plasma/Serum Alcohol < 0.01 % (0-0.07) 08/05/20 20:59 Microbiology: Microbiology 08/06/20 11:19 Urine,Clean Catch Urine Culture - Preliminary NO GROWTH AFTER 24 HOURS Ryan/IV: Voiding Method Condom Catheter IV Catheter Type [left hand] Peripheral IV Active Medications - Current Medications Current Medications: Generic Name Dose Route Start Last Admin Trade Name Freq PRN Reason Stop Dose Admin Acetaminophen 650 mg 08/06/20 05:03 08/06/20 17:31 Tylenol PO 650 mg Q4H PRN Administration Pain, Mild (1-3) Aspirin 325 mg 08/06/20 10:00 08/07/20 09:22 Aspirin PO 325 mg QDAY MEIR Administration Atorvastatin Calcium 40 mg 08/06/20 22:00 08/06/20 21:30 Lipitor PO 40 mg QHS MEIR Administration Colesevelam HCl 1,875 mg 08/06/20 10:00 08/07/20 09:22 Welchol PO 1,875 mg BID MEIR Administration Donepezil HCl 10 mg 08/06/20 10:00 08/07/20 09:22 Aricept PO 10 mg QDAY MEIR Administration Ceftriaxone Sodium 1 gm in 50 mls @ 100 mls/hr 08/06/20 10:00 08/07/20 09:24 Rocephin/Ns 1 Gm/50 Ml IV 100 mls/hr Q24HR MEIR Administration Protocol Melatonin 5 mg 08/06/20 05:05 Melatonin PO QHS PRN Sleep Memantine 5 mg 08/06/20 10:00 08/07/20 09:22 Memantine PO 5 mg BID MEIR Administration Pantoprazole Sodium 40 mg 08/06/20 10:00 08/07/20 09:22 Protonix PO 40 mg QDAY MEIR Administration Sertraline HCl 25 mg 08/06/20 10:00 08/07/20 09:22 Zoloft PO 25 mg QDAY MEIR Administration Sodium Chloride 10 ml 08/06/20 05:03 08/06/20 21:31 Sodium Chloride Flush Syringe 10 Ml IV 10 ml PRN PRN Administration LINE FLUSH
--- NOTE | 2020-08-08 10:02 | Progress Note ---
Assessment and Plan Assessment and plan: (1) Altered mental state Current Visit: Yes Status: Acute Qualifiers: Altered mental status type: unspecified Qualified Code(s): R41.82 - Altered mental status, unspecified Improved (2) UTI (urinary tract infection), ruled out, urine culture is negative Current Visit: Yes Status: Acute Qualifiers: Urinary tract infection type: acute cystitis Hematuria presence: with hematuria Qualified Code(s): N30.01 - Acute cystitis with hematuria Patient is on IV ceftriaxone We will follow urine culture (3) TIA (transient ischemic attack) vs seizure disorder Current Visit: Yes Status: Acute -TIA/CVA work-up in progress -Telemetry neurology consult (4) Weakness Current Visit: Yes Status: Acute PT OT consulted (5) DVT prophylaxis Current Visit: Yes Status: Acute (6) Full code status Current Visit: Yes Status: Acute 08/07/2020 -MRI and neuro consult is pending. PT evaluation appreciated. 08/08/2020 -MRI was ordered for the last few days and was not done. Neurology consult has been requested but was not seen. Patient was evaluated by PT and recommended home health PT. urine culture is negative and ceftriaxone discontinued. Patient can be discharged once MRI is done and neuro evaluated the patient. History Interval history: Patient was seen and evaluated this morning Patient is demented but cooperative Patient was on restraints Hospitalist Physical - Physical exam Narrative exam: Not in cardiopulmonary distress. The patient appeared well nourished and normally developed. Vital signs as documented. Head exam is unremarkable. No scleral icterus . Neck is without jugular venous distension, thyromegaly, or carotid bruits. Lungs are clear to auscultation. Cardiac exam reveals regular rate and Rhythm. Abdominal exam reveals normal bowel sounds, nontender, no organomegaly. Extremities are nonedematous and both femoral and pedal pulses are normal. INTERIOR BLOCK WIRER: Alert and oriented to self. No focal weakness. - Constitutional Vitals: Temp Pulse Resp BP Pulse Ox 97.7 F 51 L 18 161/72 94 08/08/20 07:24 08/08/20 07:24 08/08/20 07:24 08/08/20 07:24 08/08/20 07:24 General appearance: Present: no acute distress, well-nourished HEART Score - HEART Score Troponin: Troponin T < 0.010 ng/mL (0.00-0.029) 08/05/20 20:59 Results - Labs CBC & Chem 7: 08/07/20 04:24 08/07/20 04:24 Labs: Laboratory Last Values WBC 9.3 K/mm3 (4.5-11.0) 08/07/20 04:24 RBC 4.07 M/mm3 (3.65-5.03) 08/07/20 04:24 Hgb 12.8 gm/dl (11.8-15.2) 08/07/20 04:24 Hct 36.7 % (35.5-45.6) 08/07/20 04:24 MCV 90 fl (84-94) 08/07/20 04:24 MCH 31 pg (28-32) 08/07/20 04:24 MCHC 35 % (32-34) H 08/07/20 04:24 RDW 12.9 % (13.2-15.2) L 08/07/20 04:24 Plt Count 186 K/mm3 (140-440) 08/07/20 04:24 Lymph % (Auto) 13.7 % (13.4-35.0) 08/07/20 04:24 [place] % (Auto) 7.4 % (0.0-7.3) H 08/07/20 04:24 Eos % (Auto) 0.1 % (0.0-4.3) 08/07/20 04:24 Baso % (Auto) 0.2 % (0.0-1.8) 08/07/20 04:24 Lymph # (Auto) 1.3 K/mm3 (1.2-5.4) 08/07/20 04:24 [place] # (Auto) 0.7 K/mm3 (0.0-0.8) 08/07/20 04:24 Eos # (Auto) 0.0 K/mm3 (0.0-0.4) 08/07/20 04:24 Baso # (Auto) 0.0 K/mm3 (0.0-0.1) 08/07/20 04:24 Seg Neutrophils % 78.6 % (40.0-70.0) H 08/07/20 04:24 Seg Neutrophils # 7.3 K/mm3 (1.8-7.7) 08/07/20 04:24 PT 13.6 Sec. (12.2-14.9) 08/05/20 20:59 INR 1.06 (0.87-1.13) 08/05/20 20:59 APTT 25.8 Sec. (24.2-36.6) 08/05/20 20:59 Thrombin Time 15.0 Sec. (15.1-19.6) L 08/05/20 20:59 Sodium 140 mmol/L (137-145) 08/07/20 04:24 Potassium 3.7 mmol/L (3.6-5.0) 08/07/20 04:24 Chloride 104.9 mmol/L (98-107) 08/07/20 04:24 Carbon Dioxide 28 mmol/L (22-30) 08/07/20 04:24 Anion Gap 11 mmol/L 08/07/20 04:24 BUN 21 mg/dL (9-20) H 08/07/20 04:24 Creatinine 1.1 mg/dL (0.8-1.3) 08/07/20 04:24 Estimated GFR > 60 ml/min 08/07/20 04:24 BUN/Creatinine Ratio 19 % 08/07/20 04:24 Glucose 109 mg/dL (75-100) H 08/07/20 04:24 POC Glucose 157 mg/dL (70-105) H 08/05/20 20:47 Calcium 8.7 mg/dL (8.4-10.2) 08/07/20 04:24 Total Bilirubin 0.90 mg/dL (0.1-1.2) 08/05/20 20:59 AST 15 units/L (5-40) 08/05/20 20:59 ALT 14 units/L (7-56) 08/05/20 20:59 Alkaline Phosphatase 73 units/L (35-129) 08/05/20 20:59 Total Creatine Kinase 74 units/L (55-170) 08/05/20 20:59 CK-MB (CK-2) 1.8 ng/mL (0.0-4.0) 08/05/20 20:59 CK-MB (CK-2) Rel Index 2.4 (0-4) 08/05/20 20:59 Troponin T < 0.010 ng/mL (0.00-0.029) 08/05/20 20:59 Total Protein 7.9 g/dL (6.3-8.2) 08/05/20 20:59 Albumin 4.0 g/dL (3.9-5) 08/05/20 20:59 Albumin/Globulin Ratio 1.0 % 08/05/20 20:59 Triglycerides 97 mg/dL (2-149) 08/07/20 04:24 Cholesterol 133 mg/dL (50-199) 08/07/20 04:24 LDL Cholesterol Direct 87 mg/dL (50-130) 08/07/20 04:24 HDL Cholesterol 32 mg/dL (40-59) L 08/07/20 04:24 Cholesterol/HDL Ratio 4.15 % 08/07/20 04:24 Urine Color Yellow (Yellow) 08/06/20 Unknown Urine Turbidity Slightly-cloudy (Clear) 08/06/20 Unknown Urine pH 5.0 (5.0-7.0) 08/06/20 Unknown Ur Specific [place] 1.015 (1.003-1.030) 08/06/20 Unknown Urine Protein 30 mg/dl mg/dL (Negative) 08/06/20 Unknown Urine Glucose (UA) Neg mg/dL (Negative) 08/06/20 Unknown Urine Ketones Neg mg/dL (Negative) 08/06/20 Unknown Urine Blood Mod (Negative) 08/06/20 Unknown Urine Nitrite Neg (Negative) 08/06/20 Unknown Urine Bilirubin Neg (Negative) 08/06/20 Unknown Urine Urobilinogen < 2.0 mg/dL (<2.0) 08/06/20 Unknown Ur Leukocyte Esterase Lg (Negative) 08/06/20 Unknown Urine WBC (Auto) > 182.0 /HPF (0.0-6.0) H 08/06/20 Unknown Urine RBC (Auto) 7.0 /HPF (0.0-6.0) 08/06/20 Unknown Urine Bacteria (Auto) 1+ /HPF (Negative) 08/06/20 Unknown Urine WBC Clumps 3+ /HPF 08/05/20 Unknown Urine Mucus Few /HPF 08/06/20 Unknown Urine Yeast (Budding) 3+ /HPF 08/05/20 Unknown Urine Opiates Screen Negative 08/05/20 Unknown Urine Methadone Screen Negative 08/05/20 Unknown Ur Barbiturates Screen Negative 08/05/20 Unknown Ur Phencyclidine Scrn Negative 08/05/20 Unknown Ur Amphetamines Screen Negative 08/05/20 Unknown U Benzodiazepines Scrn Negative 08/05/20 Unknown Urine Cocaine Screen Negative 08/05/20 Unknown U Marijuana (THC) Screen Negative 08/05/20 Unknown Drugs of Abuse Note Disclamer 08/05/20 Unknown Plasma/Serum Alcohol < 0.01 % (0-0.07) 08/05/20 20:59 Microbiology: Microbiology 08/06/20 11:19 Urine,Clean Catch Urine Culture - Preliminary NO GROWTH AFTER 24 HOURS Ryan/IV: Voiding Method Condom Catheter IV Catheter Type [left hand] Peripheral IV IV Catheter Type [Right Peripheral IV Forearm] Active Medications - Current Medications Current Medications: Generic Name Dose Route Start Last Admin Trade Name Freq PRN Reason Stop Dose Admin Acetaminophen 650 mg 08/06/20 05:03 08/06/20 17:31 Tylenol PO 650 mg Q4H PRN Administration Pain, Mild (1-3) Aspirin 325 mg 08/06/20 10:00 08/07/20 09:22 Aspirin PO 325 mg QDAY MEIR Administration Atorvastatin Calcium 40 mg 08/06/20 22:00 08/07/20 21:57 Lipitor PO 40 mg QHS MEIR Administration Colesevelam HCl 1,875 mg 08/06/20 10:00 08/07/20 21:58 Welchol PO 1,875 mg BID MEIR Administration Donepezil HCl 10 mg 08/06/20 10:00 08/07/20 09:22 Aricept PO 10 mg QDAY MEIR Administration Melatonin 5 mg 08/06/20 05:05 Melatonin PO QHS PRN Sleep Memantine 5 mg 08/06/20 10:00 08/07/20 21:57 Memantine PO 5 mg BID MEIR Administration Pantoprazole Sodium 40 mg 08/06/20 10:00 08/07/20 09:22 Protonix PO 40 mg QDAY MEIR Administration Sertraline HCl 25 mg 08/06/20 10:00 08/07/20 09:22 Zoloft PO 25 mg QDAY MEIR Administration Sodium Chloride 10 ml 08/06/20 05:03 08/06/20 21:31 Sodium Chloride Flush Syringe 10 Ml IV 10 ml PRN PRN Administration LINE FLUSH
[2020-08-08] MEDS: SERTRALINE 25 MG TAB PO SCH (12:00)
[2020-08-08] MEDS: COLESEVELAM 625 MG TAB PO SCH ×2 (12:00→21:35)
[2020-08-08] MEDS: ASPIRIN 325 MG TAB PO SCH (12:00)
[2020-08-08] MEDS: PANTOPRAZOLE 40 MG TAB PO SCH (12:00)
[2020-08-08] MEDS: MEMANTINE 5 MG TAB PO SCH ×2 (12:00→21:35)
[2020-08-08] MEDS: DONEPEZIL 10 MG TAB PO SCH (12:00)
[2020-08-08] MEDS: MELATONIN 5 MG TAB PO PRN (21:35)
[2020-08-08] MEDS ORDERED: LORazepam 2 MG/ML VIAL IV ONE (21:45)
[2020-08-09] MEDS: ASPIRIN 325 MG TAB PO SCH (10:25)
[2020-08-09] MEDS: SERTRALINE 25 MG TAB PO SCH (10:25)
[2020-08-09] MEDS: DONEPEZIL 10 MG TAB PO SCH (10:25)
[2020-08-09] MEDS: COLESEVELAM 625 MG TAB PO SCH ×2 (10:25→22:12)
[2020-08-09] MEDS: PANTOPRAZOLE 40 MG TAB PO SCH (10:25)
[2020-08-09] MEDS: MEMANTINE 5 MG TAB PO SCH ×2 (10:28→22:13)
--- NOTE | 2020-08-09 16:53 | Consultation ---
History of Present Illness Consult date: 08/09/20 Reason for Consult: Change in mental status, right-sided weakness, loss of bladder control History of present illness: This is a comprehensive neurological consultation on Mr. Harjeet Engle who is a very pleasant 84-year-old gentleman admitted with the symptoms of right-sided weakness, change in mental status, and loss of bladder control as per his ER note. Patient has dementia/cognitive difficulty for almost 10 years. 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 He never had any focal deficit after the brain tumor surgery. Presently he has urinary tract infection but there was no reported witnessed seizures. Past History Past Medical History: hypertension, seizures, other (Dementia) Past Surgical History: No surgical history, Other (THREAD GRINDER TOOL shunt placement,Brain tumor removal in 1989) Social history: no significant social history Family history: no significant family history Medications and Allergies Allergies Allergy/AdvReac Type Severity Reaction Status Date / Time No Known Allergies Allergy Unverified 08/05/20 21:02 Home Medications Medication Instructions Recorded Confirmed Last Taken Type Colesevelam [Welchol] 1,875 mg PO BID 08/05/20 08/05/20 Unknown History Melatonin [Melatonin 3MG TAB] 3 mg PO QHS PRN 08/05/20 08/05/20 Unknown History Memantine [Namenda] 5 mg PO BID 08/05/20 08/05/20 Unknown History Omeprazole 40 mg PO QDAY 08/05/20 08/05/20 Unknown History Sertraline [Zoloft] 25 mg PO QDAY 08/05/20 08/05/20 Unknown History donepeziL [Aricept] 10 mg PO QDAY 08/05/20 08/05/20 Unknown History Active Meds: Active Medications Acetaminophen (Tylenol) 650 mg PO Q4H PRN PRN Reason: Pain, Mild (1-3) Last Admin: 08/06/20 17:31 Dose: 650 mg Documented by: Aspirin (Aspirin) 325 mg PO QDAY [facility] Last Admin: 08/09/20 10:25 Dose: 325 mg Documented by: Atorvastatin Calcium (Lipitor) 40 mg PO QHS [facility] Last Admin: 08/08/20 21:35 Dose: 40 mg Documented by: Colesevelam HCl (Welchol) 1,875 mg PO BID [facility] Last Admin: 08/09/20 10:25 Dose: 1,875 mg Documented by: Donepezil HCl (Aricept) 10 mg PO QDAY [facility] Last Admin: 08/09/20 10:25 Dose: 10 mg Documented by: Melatonin (Melatonin) 5 mg PO QHS PRN PRN Reason: Sleep Last Admin: 08/08/20 21:35 Dose: 5 mg Documented by: Memantine (Memantine) 5 mg PO BID [facility] Last Admin: 08/09/20 10:28 Dose: 5 mg Documented by: Pantoprazole Sodium (Protonix) 40 mg PO QDAC [facility] Sertraline HCl (Zoloft) 25 mg PO QDAY [facility] Last Admin: 08/09/20 10:25 Dose: 25 mg Documented by: Sodium Chloride (Sodium Chloride Flush Syringe 10 Ml) 10 ml IV PRN PRN PRN Reason: LINE FLUSH Last Admin: 08/06/20 21:31 Dose: 10 ml Documented by: Review of Systems ROS unobtainable: due to mental status (dementia) Physical Examination - Vital Signs Vital Signs: Vital Signs Pulse Resp Pulse Ox 73 25 H 95 08/05/20 19:47 08/05/20 19:47 08/05/20 19:47 - Physical Exam Narrative exam: Comprehensive Neurological Examinations: Mental status: alert. Fund of knowledge-normal. Affect-appropriate. Recent memory-mild to moderate short-term memory loss. Remote memory-normal. Attention span-normal. Cognitive function-decline. Thought content/perception- normal Speech-normal Cranial nerves: II Optic: Visual uumvge-emzofhizz-fwgznr. Visual field-normal. III Oculomotor: Bilateral-normal IV Trochlear: Bilateral-normal V Trigeminal: Bilateral-normal. Abducens: Bilateral-normal VII Facial: Bilateral-normal VIII Acoustic: ncpiuxhrz-ppkhtdb-noiwel( tested by finger rub) IX Glossopharyngeal/ X Sngqz-kvohd-ximjfl XI Accessory-normal shoulder shrug XII Sohwqwwkcwy-usitevgby-izlhgm Eye movements: Axro-yguhcnoba-djnwnz Nystagmus: Bilateral-none Motor: Bulk and contour: Normal Tone: Normal Strength: Head and neck-normal Upper extremities: Right-no drift Left-no drift Lower extremities: Right-no drift Left-no drift DTRs: Deferred Plantar reflexes( Babinski)-bilateral-plantar flexion Sensory: Light touch/pcrcgcaf-hpgcjq-iejjkiej Coordination: No impairment Gait/Station: not tested due to safety of the patient - Constitutional General appearance: comfortable - EENT EENT: Present: ATNC, PERRL, hearing intact, vision intact - Respiratory Respiratory: Present: chest non-tender, normal breath sounds, no respiratory distress - Cardiovascular Cardiovascular: Present: regular rate Extremities: Present: no peripheral edema bilatateraly - Gastrointestinal Gastrointestinal: Present: normoactive bowel sounds, soft, non-tender - Integumentary Integumentary: Present: normal - Level of Consciousness 1a. Level of Consciousness: alert/keenly responsive - LOC Questions 1b. LOC Questions: answers both correctly - LOC Command 1c. LOC Commands: performs tasks correctly - Best Gaze 2. Best Gaze: normal - Visual 3. Visual: no visual loss - Facial Palsy 4. Facial Palsy: normal symmetrical movement - Motor Arm 5a. Motor Arm Left: no drift 5b. Motor Arm Right: no drift - Motor Leg 6a. Motor Leg Left: no drift 6b. Motor Leg Right: no drift - Limb Ataxia 7. Limb Ataxia: absent - Sensory 8. Sensory: normal - Best Language 9. Best Language: no aphasia - Dysarthria 10. Dysarthria: normal - Extinction and Inattention 11. Extinction/Inattention: no abnormality - Scoring Total Score: 0 Stroke Severity: No Stroke Symptoms Results - Laboratory Findings CBC and BMP: 08/07/20 04:24 08/07/20 04:24 Abnormal Lab Findings: Abnormal Labs 08/05/20 08/05/20 08/05/20 20:47 20:59 20:59 WBC 12.9 H MCHC RDW 13.0 L Lymph % (Auto) 8.7 L [place] % (Auto) Lymph # (Auto) 1.1 L Seg Neutrophils % 85.1 H Seg Neutrophils # 11.0 H Thrombin Time 15.0 L BUN Glucose POC Glucose 157 H HDL Cholesterol Urine WBC (Auto) 08/05/20 08/05/20 08/06/20 20:59 Unknown Unknown WBC MCHC RDW Lymph % (Auto) [place] % (Auto) Lymph # (Auto) Seg Neutrophils % Seg Neutrophils # Thrombin Time BUN 21 H Glucose 140 H POC Glucose HDL Cholesterol Urine WBC (Auto) > 182.0 H > 182.0 H 08/07/20 08/07/20 04:24 04:24 WBC MCHC 35 H RDW 12.9 L Lymph % (Auto) [place] % (Auto) 7.4 H Lymph # (Auto) Seg Neutrophils % 78.6 H Seg Neutrophils # Thrombin Time BUN 21 H Glucose 109 H POC Glucose HDL Cholesterol 32 L Urine WBC (Auto) Assessment and Plan - Patient Problems (1) THREAD GRINDER TOOL (ventriculoperitoneal) shunt status Current Visit: Yes Status: Acute Plan to address problem: Plan: 1) Patient has a patient since 1989 (2) Dementia Current Visit: Yes Status: Acute Plan to address problem: Plan: 1) likely baseline, patient is already on Aricept and memantine. (3) Altered mental state Current Visit: Yes Status: Acute Qualifiers: Altered mental status type: unspecified Qualified Code(s): R41.82 - Altered mental status, unspecified Plan to address problem: Plan: 1) Likely from UTI although to rule out any intracranial abnormality like lacunar stroke that needs to be ruled out by doing MRI of brain. However one has to make sure that he is a THREAD GRINDER TOOL shunt wall is compatible for MRI of the brain or else after the MRI the pressure in the wall needs to be adjusted with the help of neurosurgery. 2) also please order an EEG to look for any subclinical seizures. I discussed at length with the patient/family members/relatives regarding his condition and possible treatment options. I have answered multiple questions posed by the patient/family members/relatives to their best satisfactions. Patient agreed with the plan. Thank you very much for allowing us in the care of your patient. Please call us if you have any questions. Carlos A Rogers MD Tele-neurologist [phone]
--- NOTE | 2020-08-09 18:15 | Progress Note ---
Assessment and Plan Assessment and plan: -- Altered mental state/acute metabolic encephalopathy Current Visit: Yes Status: Acute Multifactorial , significantly improved -- UTI (urinary tract infection), ruled out, urine culture is negative Current Visit: Yes Status: Acute Empiric antibiotics Patient is on IV ceftriaxone follow urine culture, supportive care --TIA (transient ischemic attack) vs seizure disorder Current Visit: Yes Status: Acute -TIA/CVA work-up in progress -Telemetry neurology consult --Generalized weakness Current Visit: Yes Status: Acute PT OT and supportive care --DVT prophylaxis Current Visit: Yes Status: Acute SCD --Full code status Current Visit: Yes Status: Acute 08/07/2020 -MRI and neuro consult is pending. PT evaluation appreciated. 08/08/2020 -MRI was ordered for the last few days and was not done. Neurology consult has been requested but was not seen. Patient was evaluated by PT and recommended home health PT. urine culture is negative and ceftriaxone discontinued. Patient can be discharged once MRI is done and neuro evaluated the patient. History Interval history: I have seen and examined the patient at the bedside Patient's chart and medications reviewed Today patient is slightly better Neuro work-up is in progress Hospitalist Physical - Constitutional Vitals: Temp Pulse Resp BP Pulse Ox 98.3 F 48 L 20 172/68 90 08/09/20 16:00 08/09/20 16:01 08/09/20 16:00 08/09/20 16:00 08/09/20 16:01 General appearance: Present: no acute distress, well-nourished - EENT Eyes: Present: PERRL, EOM intact - Neck Neck: Present: supple, normal ROM - Respiratory Respiratory effort: normal Respiratory: bilateral: diminished, negative: rales, rhonchi, wheezing - Cardiovascular Rhythm: regular Heart Sounds: Present: S1 & S2 - Extremities Extremities: no ischemia, No edema - Abdominal General gastrointestinal: soft, non-tender, non-distended, normal bowel sounds - Integumentary Integumentary: Present: clear, warm - Psychiatric Psychiatric: appropriate mood/affect, cooperative - Neurologic Neurologic: moves all extremities HEART Score - HEART Score Troponin: Troponin T < 0.010 ng/mL (0.00-0.029) 08/05/20 20:59 Results - Labs CBC & Chem 7: 08/07/20 04:24 08/07/20 04:24 Labs: Laboratory Last Values WBC 9.3 K/mm3 (4.5-11.0) 08/07/20 04:24 RBC 4.07 M/mm3 (3.65-5.03) 08/07/20 04:24 Hgb 12.8 gm/dl (11.8-15.2) 08/07/20 04:24 Hct 36.7 % (35.5-45.6) 08/07/20 04:24 MCV 90 fl (84-94) 08/07/20 04:24 MCH 31 pg (28-32) 08/07/20 04:24 MCHC 35 % (32-34) H 08/07/20 04:24 RDW 12.9 % (13.2-15.2) L 08/07/20 04:24 Plt Count 186 K/mm3 (140-440) 08/07/20 04:24 Lymph % (Auto) 13.7 % (13.4-35.0) 08/07/20 04:24 [place] % (Auto) 7.4 % (0.0-7.3) H 08/07/20 04:24 Eos % (Auto) 0.1 % (0.0-4.3) 08/07/20 04:24 Baso % (Auto) 0.2 % (0.0-1.8) 08/07/20 04:24 Lymph # (Auto) 1.3 K/mm3 (1.2-5.4) 08/07/20 04:24 [place] # (Auto) 0.7 K/mm3 (0.0-0.8) 08/07/20 04:24 Eos # (Auto) 0.0 K/mm3 (0.0-0.4) 08/07/20 04:24 Baso # (Auto) 0.0 K/mm3 (0.0-0.1) 08/07/20 04:24 Seg Neutrophils % 78.6 % (40.0-70.0) H 08/07/20 04:24 Seg Neutrophils # 7.3 K/mm3 (1.8-7.7) 08/07/20 04:24 PT 13.6 Sec. (12.2-14.9) 08/05/20 20:59 INR 1.06 (0.87-1.13) 08/05/20 20:59 APTT 25.8 Sec. (24.2-36.6) 08/05/20 20:59 Thrombin Time 15.0 Sec. (15.1-19.6) L 08/05/20 20:59 Sodium 140 mmol/L (137-145) 08/07/20 04:24 Potassium 3.7 mmol/L (3.6-5.0) 08/07/20 04:24 Chloride 104.9 mmol/L (98-107) 08/07/20 04:24 Carbon Dioxide 28 mmol/L (22-30) 08/07/20 04:24 Anion Gap 11 mmol/L 08/07/20 04:24 BUN 21 mg/dL (9-20) H 08/07/20 04:24 Creatinine 1.1 mg/dL (0.8-1.3) 08/07/20 04:24 Estimated GFR > 60 ml/min 08/07/20 04:24 BUN/Creatinine Ratio 19 % 08/07/20 04:24 Glucose 109 mg/dL (75-100) H 08/07/20 04:24 POC Glucose 157 mg/dL (70-105) H 08/05/20 20:47 Calcium 8.7 mg/dL (8.4-10.2) 08/07/20 04:24 Total Bilirubin 0.90 mg/dL (0.1-1.2) 08/05/20 20:59 AST 15 units/L (5-40) 08/05/20 20:59 ALT 14 units/L (7-56) 08/05/20 20:59 Alkaline Phosphatase 73 units/L (35-129) 08/05/20 20:59 Total Creatine Kinase 74 units/L (55-170) 08/05/20 20:59 CK-MB (CK-2) 1.8 ng/mL (0.0-4.0) 08/05/20 20:59 CK-MB (CK-2) Rel Index 2.4 (0-4) 08/05/20 20:59 Troponin T < 0.010 ng/mL (0.00-0.029) 08/05/20 20:59 Total Protein 7.9 g/dL (6.3-8.2) 08/05/20 20:59 Albumin 4.0 g/dL (3.9-5) 08/05/20 20:59 Albumin/Globulin Ratio 1.0 % 08/05/20 20:59 Triglycerides 97 mg/dL (2-149) 08/07/20 04:24 Cholesterol 133 mg/dL (50-199) 08/07/20 04:24 LDL Cholesterol Direct 87 mg/dL (50-130) 08/07/20 04:24 HDL Cholesterol 32 mg/dL (40-59) L 08/07/20 04:24 Cholesterol/HDL Ratio 4.15 % 08/07/20 04:24 Urine Color Yellow (Yellow) 08/06/20 Unknown Urine Turbidity Slightly-cloudy (Clear) 08/06/20 Unknown Urine pH 5.0 (5.0-7.0) 08/06/20 Unknown Ur Specific [place] 1.015 (1.003-1.030) 08/06/20 Unknown Urine Protein 30 mg/dl mg/dL (Negative) 08/06/20 Unknown Urine Glucose (UA) Neg mg/dL (Negative) 08/06/20 Unknown Urine Ketones Neg mg/dL (Negative) 08/06/20 Unknown Urine Blood Mod (Negative) 08/06/20 Unknown Urine Nitrite Neg (Negative) 08/06/20 Unknown Urine Bilirubin Neg (Negative) 08/06/20 Unknown Urine Urobilinogen < 2.0 mg/dL (<2.0) 08/06/20 Unknown Ur Leukocyte Esterase Lg (Negative) 08/06/20 Unknown Urine WBC (Auto) > 182.0 /HPF (0.0-6.0) H 08/06/20 Unknown Urine RBC (Auto) 7.0 /HPF (0.0-6.0) 08/06/20 Unknown Urine Bacteria (Auto) 1+ /HPF (Negative) 08/06/20 Unknown Urine WBC Clumps 3+ /HPF 08/05/20 Unknown Urine Mucus Few /HPF 08/06/20 Unknown Urine Yeast (Budding) 3+ /HPF 08/05/20 Unknown Urine Opiates Screen Negative 08/05/20 Unknown Urine Methadone Screen Negative 08/05/20 Unknown Ur Barbiturates Screen Negative 08/05/20 Unknown Ur Phencyclidine Scrn Negative 08/05/20 Unknown Ur Amphetamines Screen Negative 08/05/20 Unknown U Benzodiazepines Scrn Negative 08/05/20 Unknown Urine Cocaine Screen Negative 08/05/20 Unknown U Marijuana (THC) Screen Negative 08/05/20 Unknown Drugs of Abuse Note Disclamer 08/05/20 Unknown Plasma/Serum Alcohol < 0.01 % (0-0.07) 08/05/20 20:59 Ryan/IV: Voiding Method Condom Catheter IV Catheter Type [left hand] Peripheral IV IV Catheter Type [Left INT / Saline Lock Antecubital] IV Catheter Type [Right Peripheral IV Forearm] Active Medications - Current Medications Current Medications: Generic Name Dose Route Start Last Admin Trade Name Freq PRN Reason Stop Dose Admin Acetaminophen 650 mg 08/06/20 05:03 08/06/20 17:31 Tylenol PO 650 mg Q4H PRN Administration Pain, Mild (1-3) Aspirin 325 mg 08/06/20 10:00 08/09/20 10:25 Aspirin PO 325 mg QDAY MEIR Administration Atorvastatin Calcium 40 mg 08/06/20 22:00 08/08/20 21:35 Lipitor PO 40 mg QHS MEIR Administration Colesevelam HCl 1,875 mg 08/06/20 10:00 08/09/20 10:25 Welchol PO 1,875 mg BID MEIR Administration Donepezil HCl 10 mg 08/06/20 10:00 08/09/20 10:25 Aricept PO 10 mg QDAY MEIR Administration Melatonin 5 mg 08/06/20 05:05 08/08/20 21:35 Melatonin PO 5 mg QHS PRN Administration Sleep Memantine 5 mg 08/06/20 10:00 08/09/20 10:28 Memantine PO 5 mg BID MEIR Administration Pantoprazole Sodium 40 mg 08/10/20 07:30 Protonix PO QDAC MEIR Sertraline HCl 25 mg 08/06/20 10:00 08/09/20 10:25 Zoloft PO 25 mg QDAY MEIR Administration Sodium Chloride 10 ml 08/06/20 05:03 08/06/20 21:31 Sodium Chloride Flush Syringe 10 Ml IV 10 ml PRN PRN Administration LINE FLUSH
--- NOTE | 2020-08-09 18:24 | Vascular Lab Report ---
"DUPLEX DOPPLER ULTRASOUND CAROTID, BILATERAL INDICATION: stroke. FINDINGS: RIGHT CAROTID: No significant atherosclerotic plaque. Right ICA peak systolic velocity: 95 cm/sec. Right Vertebral Artery: Antegrade flow. LEFT CAROTID: No significant atherosclerotic plaque. Left ICA peak systolic velocity: 117 cm/sec. Left Vertebral Artery: Antegrade flow. IMPRESSION: 1. Right Internal Carotid Artery: Less than 50% diameter stenosis. 2. Left Internal Carotid Artery: Less than 50% diameter stenosis. Velocity criteria are extrapolated from diameter data as defined by the Society of Radiologists in [employer] Consensus Conference, Radiology 2003; 229;340-346. Degree of Stenosis (%) || ICA PSV (cm/sec) || Plaque estimate (%) || ICA/CCA PSV Ratio Normal <125 None <2.0 <50 <125 <50 <2.0 50-69 125-230 50 2.0-4.0 70 but less than 100 >230 50 >4.0 Near occlusion High, low, or none visible variable Total occlusion None visible; no lumen N/A Signer Name: Meir Calhoun MD Signed: 08/09/2020 6:19 PM Workstation Name: [id number]"
[2020-08-09] MEDS: MELATONIN 5 MG TAB PO PRN (22:13)
[2020-08-10] MEDS ORDERED: ENOXAPARIN 30 MG/0.3 ML INJ SUB-Q SCH (10:00)
[2020-08-10] MEDS: ASPIRIN 325 MG TAB PO SCH (10:43)
[2020-08-10] MEDS: COLESEVELAM 625 MG TAB PO SCH ×2 (10:43→22:55)
[2020-08-10] MEDS: MEMANTINE 5 MG TAB PO SCH ×2 (10:43→22:55)
[2020-08-10] MEDS: PANTOPRAZOLE 40 MG TAB PO SCH (10:43)
[2020-08-10] MEDS: DONEPEZIL 10 MG TAB PO SCH (10:44)
[2020-08-10] MEDS: SERTRALINE 25 MG TAB PO SCH (10:45)
--- NOTE | 2020-08-10 20:55 | Progress Note ---
Assessment and Plan Assessment and plan: -- Altered mental state/acute metabolic encephalopathy Current Visit: Yes Status: Acute Multifactorial , significantly improved -- UTI (urinary tract infection), ruled out, urine culture is negative Current Visit: Yes Status: Acute Empiric antibiotics Patient is on IV ceftriaxone follow urine culture, supportive care --TIA (transient ischemic attack) vs seizure disorder Current Visit: Yes Status: Acute -TIA/CVA work-up in progress -Telemetry neurology consult --SIRS; without organ dysfunction leukocytosis, fever --Generalized weakness Current Visit: Yes Status: Acute PT OT and supportive care --DVT prophylaxis Current Visit: Yes Status: Acute SCD --Full code status Current Visit: Yes Status: Acute 08/07/2020 -MRI and neuro consult is pending. PT evaluation appreciated. 08/08/2020 -MRI was ordered for the last few days and was not done. Neurology consult has been requested but was not seen. Patient was evaluated by PT and recommended home health PT. urine culture is negative and ceftriaxone discontinued. Patient can be discharged once MRI is done and neuro evaluated the patient. 08/10/2020; History Interval history: I have seen and examined the patient at the bedside No new complaints Vital signs noted Hospitalist Physical - Constitutional Vitals: Temp Pulse Resp BP Pulse Ox 97.4 F L 55 L 16 171/70 94 08/10/20 19:12 08/10/20 19:12 08/10/20 19:12 08/10/20 19:12 08/10/20 19:12 General appearance: Present: no acute distress, well-nourished - EENT Eyes: Present: PERRL, EOM intact - Neck Neck: Present: supple, normal ROM - Respiratory Respiratory effort: normal Respiratory: bilateral: diminished, negative: rales, rhonchi, wheezing - Cardiovascular Rhythm: regular Heart Sounds: Present: S1 & S2 - Extremities Extremities: no ischemia, No edema - Abdominal General gastrointestinal: soft, non-tender, non-distended, normal bowel sounds - Integumentary Integumentary: Present: clear, warm - Psychiatric Psychiatric: appropriate mood/affect, cooperative - Neurologic Neurologic: moves all extremities HEART Score - HEART Score Troponin: Troponin T < 0.010 ng/mL (0.00-0.029) 08/05/20 20:59 Results - Labs CBC & Chem 7: 08/07/20 04:24 08/07/20 04:24 Labs: Laboratory Last Values WBC 9.3 K/mm3 (4.5-11.0) 08/07/20 04:24 RBC 4.07 M/mm3 (3.65-5.03) 08/07/20 04:24 Hgb 12.8 gm/dl (11.8-15.2) 08/07/20 04:24 Hct 36.7 % (35.5-45.6) 08/07/20 04:24 MCV 90 fl (84-94) 08/07/20 04:24 MCH 31 pg (28-32) 08/07/20 04:24 MCHC 35 % (32-34) H 08/07/20 04:24 RDW 12.9 % (13.2-15.2) L 08/07/20 04:24 Plt Count 186 K/mm3 (140-440) 08/07/20 04:24 Lymph % (Auto) 13.7 % (13.4-35.0) 08/07/20 04:24 [place] % (Auto) 7.4 % (0.0-7.3) H 08/07/20 04:24 Eos % (Auto) 0.1 % (0.0-4.3) 08/07/20 04:24 Baso % (Auto) 0.2 % (0.0-1.8) 08/07/20 04:24 Lymph # (Auto) 1.3 K/mm3 (1.2-5.4) 08/07/20 04:24 [place] # (Auto) 0.7 K/mm3 (0.0-0.8) 08/07/20 04:24 Eos # (Auto) 0.0 K/mm3 (0.0-0.4) 08/07/20 04:24 Baso # (Auto) 0.0 K/mm3 (0.0-0.1) 08/07/20 04:24 Seg Neutrophils % 78.6 % (40.0-70.0) H 08/07/20 04:24 Seg Neutrophils # 7.3 K/mm3 (1.8-7.7) 08/07/20 04:24 PT 13.6 Sec. (12.2-14.9) 08/05/20 20:59 INR 1.06 (0.87-1.13) 08/05/20 20:59 APTT 25.8 Sec. (24.2-36.6) 08/05/20 20:59 Thrombin Time 15.0 Sec. (15.1-19.6) L 08/05/20 20:59 Sodium 140 mmol/L (137-145) 08/07/20 04:24 Potassium 3.7 mmol/L (3.6-5.0) 08/07/20 04:24 Chloride 104.9 mmol/L (98-107) 08/07/20 04:24 Carbon Dioxide 28 mmol/L (22-30) 08/07/20 04:24 Anion Gap 11 mmol/L 08/07/20 04:24 BUN 21 mg/dL (9-20) H 08/07/20 04:24 Creatinine 1.1 mg/dL (0.8-1.3) 08/07/20 04:24 Estimated GFR > 60 ml/min 08/07/20 04:24 BUN/Creatinine Ratio 19 % 08/07/20 04:24 Glucose 109 mg/dL (75-100) H 08/07/20 04:24 POC Glucose 157 mg/dL (70-105) H 08/05/20 20:47 Calcium 8.7 mg/dL (8.4-10.2) 08/07/20 04:24 Total Bilirubin 0.90 mg/dL (0.1-1.2) 08/05/20 20:59 AST 15 units/L (5-40) 08/05/20 20:59 ALT 14 units/L (7-56) 08/05/20 20:59 Alkaline Phosphatase 73 units/L (35-129) 08/05/20 20:59 Total Creatine Kinase 74 units/L (55-170) 08/05/20 20:59 CK-MB (CK-2) 1.8 ng/mL (0.0-4.0) 08/05/20 20:59 CK-MB (CK-2) Rel Index 2.4 (0-4) 08/05/20 20:59 Troponin T < 0.010 ng/mL (0.00-0.029) 08/05/20 20:59 Total Protein 7.9 g/dL (6.3-8.2) 08/05/20 20:59 Albumin 4.0 g/dL (3.9-5) 08/05/20 20:59 Albumin/Globulin Ratio 1.0 % 08/05/20 20:59 Triglycerides 97 mg/dL (2-149) 08/07/20 04:24 Cholesterol 133 mg/dL (50-199) 08/07/20 04:24 LDL Cholesterol Direct 87 mg/dL (50-130) 08/07/20 04:24 HDL Cholesterol 32 mg/dL (40-59) L 08/07/20 04:24 Cholesterol/HDL Ratio 4.15 % 08/07/20 04:24 Urine Color Yellow (Yellow) 08/06/20 Unknown Urine Turbidity Slightly-cloudy (Clear) 08/06/20 Unknown Urine pH 5.0 (5.0-7.0) 08/06/20 Unknown Ur Specific [place] 1.015 (1.003-1.030) 08/06/20 Unknown Urine Protein 30 mg/dl mg/dL (Negative) 08/06/20 Unknown Urine Glucose (UA) Neg mg/dL (Negative) 08/06/20 Unknown Urine Ketones Neg mg/dL (Negative) 08/06/20 Unknown Urine Blood Mod (Negative) 08/06/20 Unknown Urine Nitrite Neg (Negative) 08/06/20 Unknown Urine Bilirubin Neg (Negative) 08/06/20 Unknown Urine Urobilinogen < 2.0 mg/dL (<2.0) 08/06/20 Unknown Ur Leukocyte Esterase Lg (Negative) 08/06/20 Unknown Urine WBC (Auto) > 182.0 /HPF (0.0-6.0) H 08/06/20 Unknown Urine RBC (Auto) 7.0 /HPF (0.0-6.0) 08/06/20 Unknown Urine Bacteria (Auto) 1+ /HPF (Negative) 08/06/20 Unknown Urine WBC Clumps 3+ /HPF 08/05/20 Unknown Urine Mucus Few /HPF 08/06/20 Unknown Urine Yeast (Budding) 3+ /HPF 08/05/20 Unknown Urine Opiates Screen Negative 08/05/20 Unknown Urine Methadone Screen Negative 08/05/20 Unknown Ur Barbiturates Screen Negative 08/05/20 Unknown Ur Phencyclidine Scrn Negative 08/05/20 Unknown Ur Amphetamines Screen Negative 08/05/20 Unknown U Benzodiazepines Scrn Negative 08/05/20 Unknown Urine Cocaine Screen Negative 08/05/20 Unknown U Marijuana (THC) Screen Negative 08/05/20 Unknown Drugs of Abuse Note Disclamer 08/05/20 Unknown Plasma/Serum Alcohol < 0.01 % (0-0.07) 08/05/20 20:59 Ryan/IV: Voiding Method Incontinent IV Catheter Type [left hand] Peripheral IV IV Catheter Type [Left Peripheral IV Antecubital] IV Catheter Type [Right Peripheral IV Forearm] Active Medications - Current Medications Current Medications: Generic Name Dose Route Start Last Admin Trade Name Freq PRN Reason Stop Dose Admin Acetaminophen 650 mg 08/06/20 05:03 08/06/20 17:31 Tylenol PO 650 mg Q4H PRN Administration Pain, Mild (1-3) Aspirin 325 mg 08/06/20 10:00 08/10/20 10:43 Aspirin PO 325 mg QDAY MEIR Administration Atorvastatin Calcium 40 mg 08/06/20 22:00 08/09/20 22:13 Lipitor PO 40 mg QHS MEIR Administration Colesevelam HCl 1,875 mg 08/06/20 10:00 08/10/20 10:43 Welchol PO 1,875 mg BID MEIR Administration Donepezil HCl 10 mg 08/06/20 10:00 08/10/20 10:44 Aricept PO 10 mg QDAY MEIR Administration Enoxaparin Sodium 40 mg 08/11/20 10:00 Enoxaparin SUB-Q QDAY@1000 [facility] Protocol Labetalol HCl 10 mg 08/10/20 00:57 08/10/20 10:47 Labetalol IV 10 mg Q6H PRN Administration Hypertension Melatonin 5 mg 08/06/20 05:05 08/09/20 22:13 Melatonin PO 5 mg QHS PRN Administration Sleep Memantine 5 mg 08/06/20 10:00 08/10/20 10:43 Memantine PO 5 mg BID MEIR Administration Pantoprazole Sodium 40 mg 08/10/20 07:30 08/10/20 10:43 Protonix PO 40 mg QDAC MEIR Administration Sertraline HCl 25 mg 08/06/20 10:00 08/10/20 10:45 Zoloft PO 25 mg QDAY MEIR Administration Sodium Chloride 10 ml 08/06/20 05:03 08/10/20 10:44 Sodium Chloride Flush Syringe 10 Ml IV 10 ml PRN PRN Administration LINE FLUSH
[2020-08-10] MEDS: MELATONIN 5 MG TAB PO PRN (22:55)
[2020-08-11] MEDS: PANTOPRAZOLE 40 MG TAB PO SCH (08:11)
[2020-08-11] MEDS: SERTRALINE 25 MG TAB PO SCH (09:20)
[2020-08-11] MEDS: COLESEVELAM 625 MG TAB PO SCH ×2 (09:21→23:18)
[2020-08-11] MEDS: ENOXAPARIN 40 MG/0.4 ML INJ SUB-Q SCH (09:21)
[2020-08-11] MEDS: ASPIRIN 325 MG TAB PO SCH (09:21)
[2020-08-11] MEDS: MEMANTINE 5 MG TAB PO SCH ×2 (09:21→23:18)
[2020-08-11] MEDS: DONEPEZIL 10 MG TAB PO SCH (09:34)
--- NOTE | 2020-08-11 15:01 | Progress Note ---
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 PT evaluation appreciated. 08/08/2020 -MRI was ordered for the last few days and was not done. Neurology consult has been requested but was not seen. Patient was evaluated by PT and recommended home health PT. urine culture is negative and ceftriaxone discontinued. Patient can be discharged once MRI is done and neuro evaluated the patient. 08/10/2020; unable to do MRI due to VENDOR MANAGEMENT CONS[employer]ANT shunt, neurology following Patient is clinically stable for discharge, awaiting placement 08/11/2020; patient is clinically stable, awaiting placement History Interval history: I have seen and examined the patient at the bedside Patient's chart and medications reviewed No new complaints,Vital signs noted Hospitalist Physical - Constitutional Vitals: Temp Pulse Resp BP Pulse Ox 98.7 F 54 L 18 149/68 94 08/11/20 12:21 08/11/20 12:21 08/11/20 12:21 08/11/20 12:21 08/11/20 12:21 General appearance: Present: no acute distress, well-nourished - EENT Eyes: Present: PERRL, EOM intact - Neck Neck: Present: supple, normal ROM - Respiratory Respiratory effort: normal Respiratory: bilateral: diminished, negative: rales, rhonchi, wheezing - Cardiovascular Rhythm: regular Heart Sounds: Present: S1 & S2 - Extremities Extremities: no ischemia, No edema - Abdominal General gastrointestinal: soft, non-tender, non-distended, normal bowel sounds - Integumentary Integumentary: Present: clear, warm - Psychiatric Psychiatric: appropriate mood/affect, cooperative - Neurologic Neurologic: moves all extremities HEART Score - HEART Score Troponin: Troponin T < 0.010 ng/mL (0.00-0.029) 08/05/20 20:59 Results - Labs CBC & Chem 7: 08/07/20 04:24 08/07/20 04:24 Labs: Laboratory Last Values WBC 9.3 K/mm3 (4.5-11.0) 08/07/20 04:24 RBC 4.07 M/mm3 (3.65-5.03) 08/07/20 04:24 Hgb 12.8 gm/dl (11.8-15.2) 08/07/20 04:24 Hct 36.7 % (35.5-45.6) 08/07/20 04:24 MCV 90 fl (84-94) 08/07/20 04:24 MCH 31 pg (28-32) 08/07/20 04:24 MCHC 35 % (32-34) H 08/07/20 04:24 RDW 12.9 % (13.2-15.2) L 08/07/20 04:24 Plt Count 186 K/mm3 (140-440) 08/07/20 04:24 Lymph % (Auto) 13.7 % (13.4-35.0) 08/07/20 04:24 [place] % (Auto) 7.4 % (0.0-7.3) H 08/07/20 04:24 Eos % (Auto) 0.1 % (0.0-4.3) 08/07/20 04:24 Baso % (Auto) 0.2 % (0.0-1.8) 08/07/20 04:24 Lymph # (Auto) 1.3 K/mm3 (1.2-5.4) 08/07/20 04:24 [place] # (Auto) 0.7 K/mm3 (0.0-0.8) 08/07/20 04:24 Eos # (Auto) 0.0 K/mm3 (0.0-0.4) 08/07/20 04:24 Baso # (Auto) 0.0 K/mm3 (0.0-0.1) 08/07/20 04:24 Seg Neutrophils % 78.6 % (40.0-70.0) H 08/07/20 04:24 Seg Neutrophils # 7.3 K/mm3 (1.8-7.7) 08/07/20 04:24 PT 13.6 Sec. (12.2-14.9) 08/05/20 20:59 INR 1.06 (0.87-1.13) 08/05/20 20:59 APTT 25.8 Sec. (24.2-36.6) 08/05/20 20:59 Thrombin Time 15.0 Sec. (15.1-19.6) L 08/05/20 20:59 Sodium 140 mmol/L (137-145) 08/07/20 04:24 Potassium 3.7 mmol/L (3.6-5.0) 08/07/20 04:24 Chloride 104.9 mmol/L (98-107) 08/07/20 04:24 Carbon Dioxide 28 mmol/L (22-30) 08/07/20 04:24 Anion Gap 11 mmol/L 08/07/20 04:24 BUN 21 mg/dL (9-20) H 08/07/20 04:24 Creatinine 1.1 mg/dL (0.8-1.3) 08/07/20 04:24 Estimated GFR > 60 ml/min 08/07/20 04:24 BUN/Creatinine Ratio 19 % 08/07/20 04:24 Glucose 109 mg/dL (75-100) H 08/07/20 04:24 POC Glucose 157 mg/dL (70-105) H 08/05/20 20:47 Calcium 8.7 mg/dL (8.4-10.2) 08/07/20 04:24 Total Bilirubin 0.90 mg/dL (0.1-1.2) 08/05/20 20:59 AST 15 units/L (5-40) 08/05/20 20:59 ALT 14 units/L (7-56) 08/05/20 20:59 Alkaline Phosphatase 73 units/L (35-129) 08/05/20 20:59 Total Creatine Kinase 74 units/L (55-170) 08/05/20 20:59 CK-MB (CK-2) 1.8 ng/mL (0.0-4.0) 08/05/20 20:59 CK-MB (CK-2) Rel Index 2.4 (0-4) 08/05/20 20:59 Troponin T < 0.010 ng/mL (0.00-0.029) 08/05/20 20:59 Total Protein 7.9 g/dL (6.3-8.2) 08/05/20 20:59 Albumin 4.0 g/dL (3.9-5) 08/05/20 20:59 Albumin/Globulin Ratio 1.0 % 08/05/20 20:59 Triglycerides 97 mg/dL (2-149) 08/07/20 04:24 Cholesterol 133 mg/dL (50-199) 08/07/20 04:24 LDL Cholesterol Direct 87 mg/dL (50-130) 08/07/20 04:24 HDL Cholesterol 32 mg/dL (40-59) L 08/07/20 04:24 Cholesterol/HDL Ratio 4.15 % 08/07/20 04:24 Urine Color Yellow (Yellow) 08/06/20 Unknown Urine Turbidity Slightly-cloudy (Clear) 08/06/20 Unknown Urine pH 5.0 (5.0-7.0) 08/06/20 Unknown Ur Specific [place] 1.015 (1.003-1.030) 08/06/20 Unknown Urine Protein 30 mg/dl mg/dL (Negative) 08/06/20 Unknown Urine Glucose (UA) Neg mg/dL (Negative) 08/06/20 Unknown Urine Ketones Neg mg/dL (Negative) 08/06/20 Unknown Urine Blood Mod (Negative) 08/06/20 Unknown Urine Nitrite Neg (Negative) 08/06/20 Unknown Urine Bilirubin Neg (Negative) 08/06/20 Unknown Urine Urobilinogen < 2.0 mg/dL (<2.0) 08/06/20 Unknown Ur Leukocyte Esterase Lg (Negative) 08/06/20 Unknown Urine WBC (Auto) > 182.0 /HPF (0.0-6.0) H 08/06/20 Unknown Urine RBC (Auto) 7.0 /HPF (0.0-6.0) 08/06/20 Unknown Urine Bacteria (Auto) 1+ /HPF (Negative) 08/06/20 Unknown Urine WBC Clumps 3+ /HPF 08/05/20 Unknown Urine Mucus Few /HPF 08/06/20 Unknown Urine Yeast (Budding) 3+ /HPF 08/05/20 Unknown Urine Opiates Screen Negative 08/05/20 Unknown Urine Methadone Screen Negative 08/05/20 Unknown Ur Barbiturates Screen Negative 08/05/20 Unknown Ur Phencyclidine Scrn Negative 08/05/20 Unknown Ur Amphetamines Screen Negative 08/05/20 Unknown U Benzodiazepines Scrn Negative 08/05/20 Unknown Urine Cocaine Screen Negative 08/05/20 Unknown U Marijuana (THC) Screen Negative 08/05/20 Unknown Drugs of Abuse Note Disclamer 08/05/20 Unknown Plasma/Serum Alcohol < 0.01 % (0-0.07) 08/05/20 20:59 Ryan/IV: Voiding Method Condom Catheter IV Catheter Type [left hand] Peripheral IV IV Catheter Type [Left Peripheral IV Antecubital] IV Catheter Type [Right Peripheral IV Forearm] Active Medications - Current Medications Current Medications: Generic Name Dose Route Start Last Admin Trade Name Freq PRN Reason Stop Dose Admin Acetaminophen 650 mg 08/06/20 05:03 08/06/20 17:31 Tylenol PO 650 mg Q4H PRN Administration Pain, Mild (1-3) Aspirin 325 mg 08/06/20 10:00 08/11/20 09:21 Aspirin PO 325 mg QDAY MEIR Administration Atorvastatin Calcium 40 mg 08/06/20 22:00 08/10/20 22:55 Lipitor PO 40 mg QHS MEIR Administration Colesevelam HCl 1,875 mg 08/06/20 10:00 08/11/20 09:21 Welchol PO 1,875 mg BID MEIR Administration Donepezil HCl 10 mg 08/06/20 10:00 08/11/20 09:34 Aricept PO 10 mg QDAY MEIR Administration Enoxaparin Sodium 40 mg 08/11/20 10:00 08/11/20 09:21 Enoxaparin SUB-Q 40 mg QDAY@1000 MEIR Administration Protocol Labetalol HCl 10 mg 08/10/20 00:57 08/11/20 04:00 Labetalol IV 10 mg Q6H PRN Administration Hypertension Melatonin 5 mg 08/06/20 05:05 08/10/20 22:55 Melatonin PO 5 mg QHS PRN Administration Sleep Memantine 5 mg 08/06/20 10:00 08/11/20 09:21 Memantine PO 5 mg BID MEIR Administration Pantoprazole Sodium 40 mg 08/10/20 07:30 08/11/20 08:11 Protonix PO 40 mg QDAC MEIR Administration Sertraline HCl 25 mg 08/06/20 10:00 08/11/20 09:20 Zoloft PO 25 mg QDAY MEIR Administration Sodium Chloride 10 ml 08/06/20 05:03 08/10/20 10:44 Sodium Chloride Flush Syringe 10 Ml IV 10 ml PRN PRN Administration LINE FLUSH
[2020-08-12] MEDS: PANTOPRAZOLE 40 MG TAB PO SCH (07:11)
[2020-08-12] MEDS: ENOXAPARIN 40 MG/0.4 ML INJ SUB-Q SCH (09:08)
[2020-08-12] MEDS: COLESEVELAM 625 MG TAB PO SCH ×2 (09:09→22:24)
[2020-08-12] MEDS: ASPIRIN 325 MG TAB PO SCH (09:09)
[2020-08-12] MEDS: DONEPEZIL 10 MG TAB PO SCH (09:09)
[2020-08-12] MEDS: SERTRALINE 25 MG TAB PO SCH (09:09)
--- NOTE | 2020-08-12 10:29 | Progress Note ---
Assessment and Plan Assessment and plan: -- Altered mental state/acute metabolic encephalopathy Current Visit: Yes Status: Acute Multifactorial , significantly improved -- UTI (urinary tract infection), ruled out, urine culture is negative Current Visit: Yes Status: Acute Empiric antibiotics IV ceftriaxone Discontinued after 2 days as cultures were negative --TIA (transient ischemic attack) vs seizure disorder Current Visit: Yes Status: Acute -TIA/CVA work-up in progress Unable to do MRI due to [employer] shunt --SIRS; without organ dysfunction leukocytosis, fever --Generalized weakness Current Visit: Yes Status: Acute PT OT and supportive care --DVT prophylaxis Current Visit: Yes Status: Acute SCD --Full code status Current Visit: Yes Status: Acute Patient is clinically stable for discharge back to nursing home Awaiting placement 08/07/2020 -MRI and neuro consult is pending. PT evaluation appreciated. 08/08/2020 -MRI was ordered for the last few days and was not done. Neurology consult has been requested but was not seen. Patient was evaluated by PT and recommended home health PT. urine culture is negative and ceftriaxone discontinued. Patient can be discharged once MRI is done and neuro evaluated the patient. 08/10/2020; unable to do MRI due to [employer] shunt, neurology following Patient is clinically stable for discharge, awaiting placement 08/11/2020; patient is clinically stable, awaiting placement 08/12/2020; patient is awaiting personal group home placement I spoke with patient's daughter after after trying her phone multiple times Explained in detail patient's condition treatment and discharge planning Answered all her questions History Interval history: I have seen and examined the patient at the bedside Patient's chart and medications reviewed Patient feels slightly better confused at times Case management processing discharge and placement Vital signs noted Hospitalist Physical - Constitutional Vitals: Temp Pulse Resp BP Pulse Ox 98.0 F 59 L 18 181/73 94 08/12/20 08:42 08/12/20 08:42 08/12/20 08:42 08/12/20 08:42 08/12/20 08:42 General appearance: Present: no acute distress, well-nourished - EENT Eyes: Present: PERRL, EOM intact - Neck Neck: Present: supple, normal ROM - Respiratory Respiratory effort: normal Respiratory: bilateral: diminished, negative: rales, rhonchi, wheezing - Cardiovascular Rhythm: regular Heart Sounds: Present: S1 & S2 - Extremities Extremities: no ischemia, No edema - Abdominal General gastrointestinal: soft, non-tender, non-distended, normal bowel sounds - Integumentary Integumentary: Present: clear, warm - Psychiatric Psychiatric: appropriate mood/affect, cooperative - Neurologic Neurologic: moves all extremities HEART Score - HEART Score Troponin: Troponin T < 0.010 ng/mL (0.00-0.029) 08/05/20 20:59 Results - Labs CBC & Chem 7: 08/07/20 04:24 08/07/20 04:24 Labs: Laboratory Last Values WBC 9.3 K/mm3 (4.5-11.0) 08/07/20 04:24 RBC 4.07 M/mm3 (3.65-5.03) 08/07/20 04:24 Hgb 12.8 gm/dl (11.8-15.2) 08/07/20 04:24 Hct 36.7 % (35.5-45.6) 08/07/20 04:24 MCV 90 fl (84-94) 08/07/20 04:24 MCH 31 pg (28-32) 08/07/20 04:24 MCHC 35 % (32-34) H 08/07/20 04:24 RDW 12.9 % (13.2-15.2) L 08/07/20 04:24 Plt Count 186 K/mm3 (140-440) 08/07/20 04:24 Lymph % (Auto) 13.7 % (13.4-35.0) 08/07/20 04:24 [place] % (Auto) 7.4 % (0.0-7.3) H 08/07/20 04:24 Eos % (Auto) 0.1 % (0.0-4.3) 08/07/20 04:24 Baso % (Auto) 0.2 % (0.0-1.8) 08/07/20 04:24 Lymph # (Auto) 1.3 K/mm3 (1.2-5.4) 08/07/20 04:24 [place] # (Auto) 0.7 K/mm3 (0.0-0.8) 08/07/20 04:24 Eos # (Auto) 0.0 K/mm3 (0.0-0.4) 08/07/20 04:24 Baso # (Auto) 0.0 K/mm3 (0.0-0.1) 08/07/20 04:24 Seg Neutrophils % 78.6 % (40.0-70.0) H 08/07/20 04:24 Seg Neutrophils # 7.3 K/mm3 (1.8-7.7) 08/07/20 04:24 PT 13.6 Sec. (12.2-14.9) 08/05/20 20:59 INR 1.06 (0.87-1.13) 08/05/20 20:59 APTT 25.8 Sec. (24.2-36.6) 08/05/20 20:59 Thrombin Time 15.0 Sec. (15.1-19.6) L 08/05/20 20:59 Sodium 140 mmol/L (137-145) 08/07/20 04:24 Potassium 3.7 mmol/L (3.6-5.0) 08/07/20 04:24 Chloride 104.9 mmol/L (98-107) 08/07/20 04:24 Carbon Dioxide 28 mmol/L (22-30) 08/07/20 04:24 Anion Gap 11 mmol/L 08/07/20 04:24 BUN 21 mg/dL (9-20) H 08/07/20 04:24 Creatinine 1.1 mg/dL (0.8-1.3) 08/07/20 04:24 Estimated GFR > 60 ml/min 08/07/20 04:24 BUN/Creatinine Ratio 19 % 08/07/20 04:24 Glucose 109 mg/dL (75-100) H 08/07/20 04:24 POC Glucose 157 mg/dL (70-105) H 08/05/20 20:47 Calcium 8.7 mg/dL (8.4-10.2) 08/07/20 04:24 Total Bilirubin 0.90 mg/dL (0.1-1.2) 08/05/20 20:59 AST 15 units/L (5-40) 08/05/20 20:59 ALT 14 units/L (7-56) 08/05/20 20:59 Alkaline Phosphatase 73 units/L (35-129) 08/05/20 20:59 Total Creatine Kinase 74 units/L (55-170) 08/05/20 20:59 CK-MB (CK-2) 1.8 ng/mL (0.0-4.0) 08/05/20 20:59 CK-MB (CK-2) Rel Index 2.4 (0-4) 08/05/20 20:59 Troponin T < 0.010 ng/mL (0.00-0.029) 08/05/20 20:59 Total Protein 7.9 g/dL (6.3-8.2) 08/05/20 20:59 Albumin 4.0 g/dL (3.9-5) 08/05/20 20:59 Albumin/Globulin Ratio 1.0 % 08/05/20 20:59 Triglycerides 97 mg/dL (2-149) 08/07/20 04:24 Cholesterol 133 mg/dL (50-199) 08/07/20 04:24 LDL Cholesterol Direct 87 mg/dL (50-130) 08/07/20 04:24 HDL Cholesterol 32 mg/dL (40-59) L 08/07/20 04:24 Cholesterol/HDL Ratio 4.15 % 08/07/20 04:24 Urine Color Yellow (Yellow) 08/06/20 Unknown Urine Turbidity Slightly-cloudy (Clear) 08/06/20 Unknown Urine pH 5.0 (5.0-7.0) 08/06/20 Unknown Ur Specific [place] 1.015 (1.003-1.030) 08/06/20 Unknown Urine Protein 30 mg/dl mg/dL (Negative) 08/06/20 Unknown Urine Glucose (UA) Neg mg/dL (Negative) 08/06/20 Unknown Urine Ketones Neg mg/dL (Negative) 08/06/20 Unknown Urine Blood Mod (Negative) 08/06/20 Unknown Urine Nitrite Neg (Negative) 08/06/20 Unknown Urine Bilirubin Neg (Negative) 08/06/20 Unknown Urine Urobilinogen < 2.0 mg/dL (<2.0) 08/06/20 Unknown Ur Leukocyte Esterase Lg (Negative) 08/06/20 Unknown Urine WBC (Auto) > 182.0 /HPF (0.0-6.0) H 08/06/20 Unknown Urine RBC (Auto) 7.0 /HPF (0.0-6.0) 08/06/20 Unknown Urine Bacteria (Auto) 1+ /HPF (Negative) 08/06/20 Unknown Urine WBC Clumps 3+ /HPF 08/05/20 Unknown Urine Mucus Few /HPF 08/06/20 Unknown Urine Yeast (Budding) 3+ /HPF 08/05/20 Unknown Urine Opiates Screen Negative 08/05/20 Unknown Urine Methadone Screen Negative 08/05/20 Unknown Ur Barbiturates Screen Negative 08/05/20 Unknown Ur Phencyclidine Scrn Negative 08/05/20 Unknown Ur Amphetamines Screen Negative 08/05/20 Unknown U Benzodiazepines Scrn Negative 08/05/20 Unknown Urine Cocaine Screen Negative 08/05/20 Unknown U Marijuana (THC) Screen Negative 08/05/20 Unknown Drugs of Abuse Note Disclamer 08/05/20 Unknown Plasma/Serum Alcohol < 0.01 % (0-0.07) 08/05/20 20:59 Ryan/IV: Voiding Method Condom Catheter IV Catheter Type [left hand] Peripheral IV IV Catheter Type [Left Peripheral IV Antecubital] IV Catheter Type [Right Peripheral IV Forearm] Active Medications - Current Medications Current Medications: Generic Name Dose Route Start Last Admin Trade Name Freq PRN Reason Stop Dose Admin Acetaminophen 650 mg 08/06/20 05:03 08/06/20 17:31 Tylenol PO 650 mg Q4H PRN Administration Pain, Mild (1-3) Aspirin 325 mg 08/06/20 10:00 08/12/20 09:09 Aspirin PO 325 mg QDAY MEIR Administration Atorvastatin Calcium 40 mg 08/06/20 22:00 08/11/20 23:18 Lipitor PO 40 mg QHS MEIR Administration Colesevelam HCl 1,875 mg 08/06/20 10:00 08/12/20 09:09 Welchol PO 1,875 mg BID MEIR Administration Donepezil HCl 10 mg 08/06/20 10:00 08/12/20 09:09 Aricept PO 10 mg QDAY MEIR Administration Enoxaparin Sodium 40 mg 08/11/20 10:00 08/12/20 09:08 Enoxaparin SUB-Q 40 mg QDAY@1000 MEIR Administration Protocol Hydralazine HCl 25 mg 08/12/20 14:00 Apresoline PO Q8HR MEIR Labetalol HCl 10 mg 08/10/20 00:57 08/11/20 04:00 Labetalol IV 10 mg Q6H PRN Administration Hypertension Labetalol HCl 10 mg 08/12/20 10:27 Labetalol IV 08/12/20 10:28 ONCE ONE Melatonin 5 mg 08/06/20 05:05 08/10/20 22:55 Melatonin PO 5 mg QHS PRN Administration Sleep Memantine 5 mg 08/06/20 10:00 08/11/20 23:18 Memantine PO 5 mg BID MEIR Administration Pantoprazole Sodium 40 mg 08/10/20 07:30 08/12/20 07:11 Protonix PO 40 mg QDAC MEIR Administration Sertraline HCl 25 mg 08/06/20 10:00 08/12/20 09:09 Zoloft PO 25 mg QDAY MEIR Administration Sodium Chloride 10 ml 08/06/20 05:03 08/10/20 10:44 Sodium Chloride Flush Syringe 10 Ml IV 10 ml PRN PRN Administration LINE FLUSH
[2020-08-12] MEDS: hydrALAZINE 25 MG TAB PO SCH ×2 (13:38→22:25)
--- NOTE | 2020-08-12 14:12 | Event Note ---
Date: 08/12/20 I have called patient's daughter Ms. Liliana Keita at [phone] [phone] today unable to reach Left a voicemail to call back to discuss about plan of care of Mr. Oniel Cosby. I informed patient's nurse Ms. Cohen of this attempted call.
--- NOTE | 2020-08-12 14:18 | Event Note ---
Date: 08/12/20 I called Ms. Liliana Keita at [phone] daughter of Mr. Harjeet Engle[the patient] for the third time And try to discuss patient's condition treatment plan and her concerns, she reports that she cannot talk As she is at work and that she would be free after 5 PM today. In the assured her that I would call back again.
[2020-08-12] MEDS: MEMANTINE 5 MG TAB PO SCH ×2 (17:17→22:25)
--- NOTE | 2020-08-12 19:00 | Event Note ---
Date: 08/12/20 Called patient's daughter Ms. Ford at [phone] again for the fourth time today and discussed extensively patient's condition, tests and reports, surgery consultant recommendations PT OT evaluation and recommendation, case management plans of placement, and other treatment plans She had many questions answered all of them, she is concerned about her is placement and wants more information And I encouraged her to call and talk to the case investigator tomorrow. Ms. Ford Neela verbalized understanding
[2020-08-13] MEDS: hydrALAZINE 25 MG TAB PO SCH ×3 (05:56→21:43)
[2020-08-13] MEDS: PANTOPRAZOLE 40 MG TAB PO SCH (08:25)
[2020-08-13] MEDS: COLESEVELAM 625 MG TAB PO SCH ×2 (09:07→21:43)
[2020-08-13] MEDS: MEMANTINE 5 MG TAB PO SCH ×2 (09:07→21:43)
[2020-08-13] MEDS: SERTRALINE 25 MG TAB PO SCH (09:08)
[2020-08-13] MEDS: DONEPEZIL 10 MG TAB PO SCH (09:08)
[2020-08-13] MEDS: ASPIRIN 325 MG TAB PO SCH (09:29)
[2020-08-13] MEDS: ENOXAPARIN 40 MG/0.4 ML INJ SUB-Q SCH (09:29)
--- NOTE | 2020-08-13 18:37 | Progress Note ---
Assessment and Plan Assessment and plan: -- Altered mental state/acute metabolic encephalopathy Current Visit: Yes Status: Acute Multifactorial , significantly improved -- UTI (urinary tract infection), ruled out, urine culture is negative Current Visit: Yes Status: Acute Empiric antibiotics IV ceftriaxone Discontinued after 2 days as cultures were negative --TIA (transient ischemic attack) vs seizure disorder Current Visit: Yes Status: Acute -TIA/CVA work-up in progress Unable to do MRI due to [employer]DROLOGY TECH[employer] shunt --SIRS; without organ dysfunction leukocytosis, fever --Generalized weakness Current Visit: Yes Status: Acute PT OT and supportive care --DVT prophylaxis Current Visit: Yes Status: Acute SCD --Full code status Current Visit: Yes Status: Acute Patient is clinically stable for discharge back to senior living Awaiting placement 08/07/2020 -MRI and neuro consult is pending. PT evaluation appreciated. 08/08/2020 -MRI was ordered for the last few days and was not done. Neurology consult has been requested but was not seen. Patient was evaluated by PT and recommended home health PT. urine culture is negative and ceftriaxone discontinued. Patient can be discharged once MRI is done and neuro evaluated the patient. 08/10/2020; unable to do MRI due to HYDROLOGY TECH[employer]ICIAN shunt, neurology following Patient is clinically stable for discharge, awaiting placement 08/11/2020; patient is clinically stable, awaiting placement 08/12/2020; patient is awaiting [facility] jail placement I spoke with patient's daughter after after trying her phone multiple times Explained in detail patient's condition treatment and discharge planning Answered all her questions 08/13/2020; patient feels slightly better today, no new complaints Awaiting placement, possible discharge tomorrow if stable History Interval history: I have seen and examined the patient at the bedside this morning Patient's chart and medications reviewed Patient feels better slightly confused Vital signs noted Responding appropriately Anxious to go home Hospitalist Physical - Constitutional Vitals: Temp Pulse Resp BP Pulse Ox 98.0 F 49 L 18 128/43 91 08/13/20 16:45 08/13/20 16:45 08/13/20 16:45 08/13/20 16:45 08/13/20 16:45 General appearance: Present: no acute distress, well-nourished - EENT Eyes: Present: PERRL, EOM intact - Neck Neck: Present: supple, normal ROM - Respiratory Respiratory effort: normal Respiratory: bilateral: diminished, rhonchi, negative: rales, wheezing - Cardiovascular Rhythm: regular Heart Sounds: Present: S1 & S2 - Extremities Extremities: no ischemia, No edema - Abdominal General gastrointestinal: soft, non-tender, non-distended, normal bowel sounds - Integumentary Integumentary: Present: clear, warm - Psychiatric Psychiatric: appropriate mood/affect, cooperative - Neurologic Neurologic: CNII-XII intact, moves all extremities HEART Score - HEART Score Troponin: Troponin T < 0.010 ng/mL (0.00-0.029) 08/05/20 20:59 Results - Labs CBC & Chem 7: 08/07/20 04:24 08/07/20 04:24 Labs: Laboratory Last Values WBC 9.3 K/mm3 (4.5-11.0) 08/07/20 04:24 RBC 4.07 M/mm3 (3.65-5.03) 08/07/20 04:24 Hgb 12.8 gm/dl (11.8-15.2) 08/07/20 04:24 Hct 36.7 % (35.5-45.6) 08/07/20 04:24 MCV 90 fl (84-94) 08/07/20 04:24 MCH 31 pg (28-32) 08/07/20 04:24 MCHC 35 % (32-34) H 08/07/20 04:24 RDW 12.9 % (13.2-15.2) L 08/07/20 04:24 Plt Count 186 K/mm3 (140-440) 08/07/20 04:24 Lymph % (Auto) 13.7 % (13.4-35.0) 08/07/20 04:24 [place] % (Auto) 7.4 % (0.0-7.3) H 08/07/20 04:24 Eos % (Auto) 0.1 % (0.0-4.3) 08/07/20 04:24 Baso % (Auto) 0.2 % (0.0-1.8) 08/07/20 04:24 Lymph # (Auto) 1.3 K/mm3 (1.2-5.4) 08/07/20 04:24 [place] # (Auto) 0.7 K/mm3 (0.0-0.8) 08/07/20 04:24 Eos # (Auto) 0.0 K/mm3 (0.0-0.4) 08/07/20 04:24 Baso # (Auto) 0.0 K/mm3 (0.0-0.1) 08/07/20 04:24 Seg Neutrophils % 78.6 % (40.0-70.0) H 08/07/20 04:24 Seg Neutrophils # 7.3 K/mm3 (1.8-7.7) 08/07/20 04:24 PT 13.6 Sec. (12.2-14.9) 08/05/20 20:59 INR 1.06 (0.87-1.13) 08/05/20 20:59 APTT 25.8 Sec. (24.2-36.6) 08/05/20 20:59 Thrombin Time 15.0 Sec. (15.1-19.6) L 08/05/20 20:59 Sodium 140 mmol/L (137-145) 08/07/20 04:24 Potassium 3.7 mmol/L (3.6-5.0) 08/07/20 04:24 Chloride 104.9 mmol/L (98-107) 08/07/20 04:24 Carbon Dioxide 28 mmol/L (22-30) 08/07/20 04:24 Anion Gap 11 mmol/L 08/07/20 04:24 BUN 21 mg/dL (9-20) H 08/07/20 04:24 Creatinine 1.1 mg/dL (0.8-1.3) 08/07/20 04:24 Estimated GFR > 60 ml/min 08/07/20 04:24 BUN/Creatinine Ratio 19 % 08/07/20 04:24 Glucose 109 mg/dL (75-100) H 08/07/20 04:24 POC Glucose 157 mg/dL (70-105) H 08/05/20 20:47 Calcium 8.7 mg/dL (8.4-10.2) 08/07/20 04:24 Total Bilirubin 0.90 mg/dL (0.1-1.2) 08/05/20 20:59 AST 15 units/L (5-40) 08/05/20 20:59 ALT 14 units/L (7-56) 11/26/20 20:59 Alkaline Phosphatase 73 units/L (35-129) 08/05/20 20:59 Total Creatine Kinase 74 units/L (55-170) 08/05/20 20:59 CK-MB (CK-2) 1.8 ng/mL (0.0-4.0) 08/05/20 20:59 CK-MB (CK-2) Rel Index 2.4 (0-4) 08/05/20 20:59 Troponin T < 0.010 ng/mL (0.00-0.029) 08/05/20 20:59 Total Protein 7.9 g/dL (6.3-8.2) 08/05/20 20:59 Albumin 4.0 g/dL (3.9-5) 08/05/20 20:59 Albumin/Globulin Ratio 1.0 % 08/05/20 20:59 Triglycerides 97 mg/dL (2-149) 08/07/20 04:24 Cholesterol 133 mg/dL (50-199) 08/07/20 04:24 LDL Cholesterol Direct 87 mg/dL (50-130) 08/07/20 04:24 HDL Cholesterol 32 mg/dL (40-59) L 08/07/20 04:24 Cholesterol/HDL Ratio 4.15 % 08/07/20 04:24 Urine Color Yellow (Yellow) 08/06/20 Unknown Urine Turbidity Slightly-cloudy (Clear) 08/06/20 Unknown Urine pH 5.0 (5.0-7.0) 08/06/20 Unknown Ur Specific [place] 1.015 (1.003-1.030) 08/06/20 Unknown Urine Protein 30 mg/dl mg/dL (Negative) 08/06/20 Unknown Urine Glucose (UA) Neg mg/dL (Negative) 08/06/20 Unknown Urine Ketones Neg mg/dL (Negative) 08/06/20 Unknown Urine Blood Mod (Negative) 08/06/20 Unknown Urine Nitrite Neg (Negative) 08/06/20 Unknown Urine Bilirubin Neg (Negative) 08/06/20 Unknown Urine Urobilinogen < 2.0 mg/dL (<2.0) 08/06/20 Unknown Ur Leukocyte Esterase Lg (Negative) 08/06/20 Unknown Urine WBC (Auto) > 182.0 /HPF (0.0-6.0) H 08/06/20 Unknown Urine RBC (Auto) 7.0 /HPF (0.0-6.0) 08/06/20 Unknown Urine Bacteria (Auto) 1+ /HPF (Negative) 08/06/20 Unknown Urine WBC Clumps 3+ /HPF 08/05/20 Unknown Urine Mucus Few /HPF 08/06/20 Unknown Urine Yeast (Budding) 3+ /HPF 08/05/20 Unknown Urine Opiates Screen Negative 08/05/20 Unknown Urine Methadone Screen Negative 08/05/20 Unknown Ur Barbiturates Screen Negative 08/05/20 Unknown Ur Phencyclidine Scrn Negative 08/05/20 Unknown Ur Amphetamines Screen Negative 08/05/20 Unknown U Benzodiazepines Scrn Negative 08/05/20 Unknown Urine Cocaine Screen Negative 08/05/20 Unknown U Marijuana (THC) Screen Negative 08/05/20 Unknown Drugs of Abuse Note Disclamer 08/05/20 Unknown Plasma/Serum Alcohol < 0.01 % (0-0.07) 08/05/20 20:59 Coronavirus (PCR) Negative (Negative) 08/12/20 Unknown Ryan/IV: Voiding Method Incontinent IV Catheter Type [left hand] Peripheral IV IV Catheter Type [Right Upper INT / Saline Lock arm] IV Catheter Type [Left Forearm INT / Saline Lock ] IV Catheter Type [Left Peripheral IV Antecubital] IV Catheter Type [Right Peripheral IV Forearm] Active Medications - Current Medications Current Medications: Generic Name Dose Route Start Last Admin Trade Name Freq PRN Reason Stop Dose Admin Acetaminophen 650 mg 08/06/20 05:03 08/06/20 17:31 Tylenol PO 650 mg Q4H PRN Administration Pain, Mild (1-3) Aspirin 325 mg 08/06/20 10:00 08/13/20 09:29 Aspirin PO 325 mg QDAY MEIR Administration Atorvastatin Calcium 40 mg 08/06/20 22:00 08/12/20 22:25 Lipitor PO 40 mg QHS MEIR Administration Colesevelam HCl 1,875 mg 08/06/20 10:00 08/13/20 09:07 Welchol PO 1,875 mg BID MEIR Administration Donepezil HCl 10 mg 08/06/20 10:00 08/13/20 09:08 Aricept PO 10 mg QDAY MEIR Administration Enoxaparin Sodium 40 mg 08/11/20 10:00 08/13/20 09:29 Enoxaparin SUB-Q 40 mg QDAY@1000 MEIR Administration Protocol Hydralazine HCl 25 mg 08/12/20 14:00 08/13/20 14:14 Apresoline PO 25 mg Q8HR MEIR Administration Labetalol HCl 10 mg 08/10/20 00:57 08/13/20 09:06 Labetalol IV 10 mg Q6H PRN Administration Hypertension Melatonin 5 mg 08/06/20 05:05 08/10/20 22:55 Melatonin PO 5 mg QHS PRN Administration Sleep Memantine 5 mg 08/06/20 10:00 08/13/20 09:07 Memantine PO 5 mg BID MEIR Administration Pantoprazole Sodium 40 mg 08/10/20 07:30 08/13/20 08:25 Protonix PO 40 mg QDAC MEIR Administration Sertraline HCl 25 mg 08/06/20 10:00 08/13/20 09:08 Zoloft PO 25 mg QDAY MEIR Administration Sodium Chloride 10 ml 08/06/20 05:03 08/10/20 10:44 Sodium Chloride Flush Syringe 10 Ml IV 10 ml PRN PRN Administration LINE FLUSH Nutrition/Malnutrition Assess - Dietary Evaluation Nutrition/Malnutrition Findings: Nutrition Notes Start: 08/12/20 12:38 Freq: Status: Active Protocol: Document 08/12/20 12:38 AT (Rec: 08/12/20 12:41 AT [id number]) Co-Sign 08/12/20 12:38 MK Nutrition Notes Need for Assessment generated from: LOS Initial or Follow up Brief Note Current Diagnosis Stroke Other Pertinent Diagnosis AMS, UTI, Dementia Current Diet Mechanical Soft Subjective/Other Information Per RN, pt is eating "very well," between 75 - 100% of meals. RN reports pt has reported no GI symptoms. Per chart, pt is anticipating discharge to senior living. Nutrition Intervention Revisit per MD consult or patient Sign Off request:
[2020-08-13] MEDS: MELATONIN 5 MG TAB PO PRN (21:43)
[2020-08-14] MEDS: hydrALAZINE 25 MG TAB PO SCH ×2 (05:53→13:59)
[2020-08-14] MEDS: PANTOPRAZOLE 40 MG TAB PO SCH (07:30)
[2020-08-14] MEDS: ASPIRIN 325 MG TAB PO SCH (10:17)
[2020-08-14] MEDS: MEMANTINE 5 MG TAB PO SCH (10:17)
[2020-08-14] MEDS: ENOXAPARIN 40 MG/0.4 ML INJ SUB-Q SCH (10:18)
[2020-08-14] MEDS: COLESEVELAM 625 MG TAB PO SCH (10:18)
[2020-08-14] MEDS: DONEPEZIL 10 MG TAB PO SCH (10:18)
[2020-08-14] MEDS: SERTRALINE 25 MG TAB PO SCH (10:19)
--- NOTE | 2020-08-14 11:33 | Discharge Summary ---
Providers - Providers Date of Admission: 08/05/20 21:40 Date of discharge: 08/14/20 Attending physician: ORQUIDEA ADHIKARI 08/05/20 23:27 Consult to Physician [CONS] Routine Comment: Consulting Provider: RHODA ANDERSON Physician Instructions: Reason For Exam: TIA vs Seizure disorder 08/06/20 05:03 Occupational Therapy Evaluate and Treat [CONS] Routine Comment: Reason For Exam: Neuro deficits Physical Therapy Evaluation and Treat [CONS] Routine Comment: Reason For Exam: Neuro deficits Hospitalization Condition: Stable Hospital course: Discharge diagnosis: -- Altered mental state/acute metabolic encephalopathy Current Visit: Yes Status: Acute Multifactorial , significantly improved -- UTI (urinary tract infection), ruled out, urine culture is negative Current Visit: Yes Status: Acute Empiric antibiotics IV ceftriaxone Discontinued after 2 days as cultures were negative --TIA (transient ischemic attack) vs seizure disorder Current Visit: Yes Status: Acute -TIA/CVA work-up in progress Unable to do MRI due to [employer]ATIONS [employer] shunt --SIRS; without organ dysfunction leukocytosis, fever --Generalized weakness Current Visit: Yes Status: Acute PT OT and supportive care --DVT prophylaxis Current Visit: Yes Status: Acute SCD --Full code status Current Visit: Yes Status: Acute Disposition: DC/[place]-70 ANOTHER TYPE [facility] Time spent for discharge: 35 min Core Measure Documentation - Palliative Care Palliative Care/ Comfort Measures: Not Applicable - Core Measures Any of the following diagnoses?: none Exam - Constitutional Vitals: Temp Pulse Resp BP Pulse Ox 98.2 F 60 18 153/74 93 08/14/20 08:24 08/14/20 08:24 08/14/20 08:24 08/14/20 08:24 08/14/20 08:24 Plan Activity: advance as tolerated, fall precautions Diet: other (Mechanical soft diet advance as tolerated) Additional Instructions: Fall precautions. Advance diet as tolerated. If you have worsening symptoms contact MD or go to emergency room Follow up with: BETTY GARLAND [Other] - 7 Days FILIBERTO SOSA MD [Staff Physician] - 14 Days Prescriptions: hydrALAZINE [Apresoline TAB] 25 mg PO Q8HR #90 tablet donepeziL [Aricept] 10 mg PO QDAY #30 tablet Aspirin EC [Halfprin EC] 81 mg PO QDAY #30 tablet.dr Carbajal [Lipitor] 40 mg PO QHS #30 tablet Melatonin/Pyridoxine HCl (B6) [Melatonin 3 mg Tablet] 1 each PO DAILY #30 tablet Memantine 5 mg PO BID #60 tablet Omeprazole 40 mg PO DAILY #30 capsule.dr Mcdonald [Welchol] 1,875 mg PO BID #60 tablet Sertraline [Zoloft] 25 mg PO QDAY #30 tab
[2020-08-14 14:00] VITALS: BP 136/65
== END 2020-08-14 16:33 | disposition other institution (70) ==
LOC: ED 19:29 → INTOOBSV 21:40 → 4A 21:40
PROVIDERS: ADMIT Internal Medicine Geriatric Medicine; ATTEND Internal Medicine
DX: G45.9 Transient cerebral ischemic attack, unspecified (principal); Z20.828 Contact with and (suspected) exposure to other viral communicable diseases; R65.10 Systemic inflammatory response syndrome (SIRS) of non-infectious origin without acute organ dysfunction; R41.82 Altered mental status, unspecified; N39.0 Urinary tract infection, site not specified; R53.1 Weakness; I10 Essential (primary) hypertension; G30.9 Alzheimer's disease, unspecified; F02.80 Dementia in other diseases classified elsewhere, unspecified severity, without behavioral disturbance, psychotic disturbance, mood disturbance, and anxiety; R56.9 Unspecified convulsions; R29.702 NIHSS score 2; Z98.890 Other specified postprocedural states; Z79.82 Long term (current) use of aspirin; Z79.899 Other long term (current) drug therapy
CPT/HCPCS: 36415; 70450; 71045; 80048; 80053; 80061; 80307; 81001; 82550; 82553; 82962; 84484; 85025; 85610; 85670; 85730; 87086; 93005; 93880; 96365; 96366; 96372; 96375; 96376; 97110; 97116; 97161; 97165; 97530; 97535; 99291; A9270; G0378; J0696; J1650; J2060; J7030; U0003; 80320; G0480